=== PATIENT | male | born 1965 | race Caucasian/White ===

== ENCOUNTER 2025-11-06 13:26 | Outpatient (AMB) | payer OTHER, SELFPAY ==
[2025-11-06 13:48] VITALS: BMI 30.7
--- NOTE | 2025-11-06 13:48 | A.PHYSOV ---
Vital Signs 11/06/25 13:48 Height 5 ft 11 in Weight 220 lb BMI 30.7 Intake Visit Reasons: NPV VMA Ref- chronic b/l knee pain Intake Note: Patient is a 60 year old male here for new patient office visit. Patient is being referred for chronic bilateral knee pain. Air Conditioning Supervisor Required: No Allergies morphine Allergy (Unknown, Verified 11/06/25 13:49) Unknown HPI Comments Details: History of Present Illness The patient is a 60 year old male presenting with painful, aching bilateral knee pain. He reports the pain is worse when lying down, particularly on his left side, and it interferes with his ability to stay asleep. He states the pain is located in the middle of his knees and that it also hurts to walk, though not as severely as when he is lying down. He describes the pain as a 2/10 at present, but it does get worse. The patient believes the knee pain feels like arthritis and is distinct from his chronic back pain and sciatica. He has a history of being told he had bone on bone knees in 2002 after training for a marathon and subsequently stopped that activity. He reports that recent x-rays showed no findings. For treatment, the patient uses a prescribed diclofenac gel and takes gabapentin for his neck and back pain, though he is unsure if it helps his knees. He has not tried physical therapy for his knees. He is averse to needles due to a prior negative experience with an injection in his elbow. I reviewed the referring provider's no prior to consultation. Pain Description - Location: Bilateral knees, located right in the middle. - Quality: Described as painful and aching. - Severity: Currently rated at 2/10, but fluctuates and gets worse. - Exacerbating Factors: Pain is worse when lying down, especially on the left side, and with walking. - Interference with Function: The pain makes it difficult for him to stay asleep. Results - Imaging: The patient reports that recent x-rays of his knees showed no significant findings. PFSH Surgical History H/O shoulder surgery History of neck surgery History of back surgery Social History Alcohol intake: current Alcohol intake frequency: does not drink Patient Tobacco Use Status: Former Tobacco user Use of substances other than those prescribed or required for medical reasons: No Current occupational status: retired Review of Systems Narrative Review of Systems - Musculoskeletal: Reports bilateral knee pain that is aching in character and worse when lying down; reports a history of back, neck, and sciatic pain. - Neurological: Reports the knee pain does not feel like it radiates from his back. - Psychiatric: Reports difficulty staying asleep due to pain. Physical Exam Exam Exam: Physical Exam - Musculoskeletal: Inspection of bilateral knees reveals no effusion. - Left Knee: Tenderness to palpation around the patella; pain elicited with passive movement. No effusion. Ligaments are intact. Negative Damaso test. - Right Knee: No tenderness to palpation of the medial or lateral aspects. Ligaments are intact. Negative Damaso test. No effusion - Range of Motion: Full active extension and flexion performed bilaterally. - neurovascularly intact distally. Vital Signs: BMI result Body Mass Index 30.7 Assessment & Plan Assessment & Plan (1) Osteoarthritis of knees, bilateral: Code(s): M17.0 - Bilateral primary osteoarthritis of knee Category: Medical Qualifiers: Osteoarthritis type: primary Qualified Code(s): M17.0 - Bilateral primary osteoarthritis of knee Plan Pain Management - Affect: The patient reports his knee pain interferes with his sleep. - Analgesia: The patient uses a prescribed arthritic pain cream (diclofenac gel) and takes gabapentin for separate neck and back issues. - Current Pain level: The patient rates his current pain as 2/10. - Activities of Daily Living: Sleep is impaired due to pain; walking is also painful. - Aberrant Drug Related Behaviors: None discussed. Plan Patient was informed and verbally consented to the use of an ambient scribe for clinic note documentation during this visit. 1. Bilateral Knee Pain The patient's bilateral knee pain is likely due to arthritis, given his history and symptoms. Treatment options were discussed, including cortisone injections, which the patient declined due to a fear of needles. The patient agreed to try physical therapy to strengthen his knees. An order for physical therapy for both knees will be provided, and the patient was given information for both [facility] and his preferred facility, [facility]. An MRI of the more symptomatic knee remains an option if physical therapy is not effective. The patient was also advised to consider trying turmeric, a natural anti-inflammatory supplement. Discussion Notes I discussed the management options for the patient's bilateral knee pain. We reviewed options including physical therapy to strengthen the knees, cortisone injections for temporary relief, and a potential future MRI of the more symptomatic knee if needed. The patient expressed a fear of needles and declined a cortisone injection, but was amenable to trying physical therapy. I will provide him with an order for physical therapy for both knees, which he can take to his preferred physical therapy location. I also suggested he could try turmeric as a natural anti-inflammatory. We briefly discussed the logistics of his care, noting that he could receive all his pain management care at one facility, such as [facility] rather than being sent to multiple offices. Patient Instructions - I have ordered physical therapy for both of your knees. - You can schedule an appointment at your preferred location, [facility] in [place], or at [facility] in [place]. - You may consider trying an [id number] supplement called turmeric, which is a natural anti-inflammatory. - Continue using your prescribed diclofenac gel for pain as needed. - If your pain does not improve with physical therapy, please follow up to discuss other options, which may include an MRI scan. Orders: Orders PT Evaluation and Treatment Today M17.0 - Bilateral primary osteoarthritis of knee Coding Level of Care Code Tele New Pt Level 4 (82109) Diagnoses Primary osteoarthritis of both knees M17.0 Osteoarthritis type: primary
--- OUTSIDE RECORDS SUMMARY | 2025-11-06 17:33 | XMS_ITS | Patient Health Record ---
Author Organization [facility] Address [address] [place] [address] Care Team Providers Care Academic Coach Name Role Phone Amanuel Kinsey MD Primary Care Provider Unavailab Scott Arceo Unavailable [phone] Allergies Allergen (clinical drug ingredient) Drug/Non Drug Allergy documented on EMR Reaction Allergy Type Onset Date Status morphine Morphine red & itchy Drug Allergy Activ e Reason For Referral No Information Medications Medication SIG (Take, Route, Frequency, Duration) Notes Start Date End Date Status Montelukast Sodium 10 MG Oral; Duration: 90 Active Quinapril HCl 20 MG Oral; Duration: 90 Active Aspirin Active Fluticasone Propionate 50 MCG/ACT Nasal; Duration: 30 Active Simvastatin 40 MG Oral; Duration: 90 Active Advair Diskus 250-50 MCG/DOSE Inhalation; Duration: 90 Act christina Sertraline HCl 100 MG Oral; Duration: 90 Active Social History Tobacco use other than smoking: Question Answer Notes Are you an other tobacco user? No Plan Of Treatment No Information Insurance Providers Payer Name Payer Address Payer Phone Subscriber Number Group Number Insured Name Patient Relationship to Insured Coverage Start Date Coverage End Date [facility] ([facility] [address] [place] [address] [phone] [id number] Brian Barajas Self - patient is the insured Medical (General) History Medical History History ICD Code Anxiety disorder asthma Back,Hip,and Knee pain Cholesterol Hypertension Joint implants/screws Heart valve conditions/replacement Hyperlipidemia Obesity, morbid Insomnia Neck pain Headaches Chronic Asthmatic Bronchitis Peroneal Tendinitis Cervical Disc Disorder Acute upper respiratory infection Dizziness Pain in thumb Surgical History Surgery Date(Month/Year) sinus surgery 1987 back surgery 1990, 1991 neck surgery 2002
--- OUTSIDE RECORDS SUMMARY | 2025-11-06 17:33 | XMS_ITS | Clinical Summary ---
Author Organization [facility] Prior to 04/19/25 Address [address] [place] [address] Care Team Providers Care Juice Weigher Name Role Phone Amanuel Kinsey MD Primary Care Provider [phone] Allergies Active Allergy Reactions Criticality Noted Date Comments Morphine And Codeine Rash Low 09/22/2017 Medications Medication Sig Dispensed Refills Start Date End Date Status DYMISTA 137-50 MCG/ACT SUSP SPRAY ONCE INTO EACH NOSTRIL 2 TIMES DAILY 11 08/04/2017 Active SYMBICORT 160-4.5 MCG/ACT inhaler 2 (two) times a day. Rinse mouth after use as directed 5 06/24/2017 Active diazepam (VALIUM) tablet 5 mg TAKE 1 TO 2 TABLETS BY MOUTH AT BEDTIME NEEDED *DO NOT DRIVE WHILE TAKING* 0 09/15/2017 Active fluticasone (FLONASE) 50 MCG/ACT nasal spray spray/apply 2 sprays in each nostril daily. 4 07/10/2017 Active FLUVIRIN 0.5 ML injection ADM 0.5ML IM UTD 0 09/10/2017 Active montelukast (SINGULAIR) 10 MG tablet TAKE 1 TABLET BY MOUTH AT BEDTIME 5 09/12/2017 Active quinapril (ACCUPRIL) 20 MG tablet TAKE 1 TABLET BY MOUTH DAILY 3 09/16/2017 Active sertraline (ZOLOFT) 100 MG tablet TAKE 2 TABLETS BY MOUTH EVERY DAY 3 09/15/2017 Active simvastatin (ZOCOR) tablet 40 mg 0 09/19/2017 Active gabapentin (NEURONTIN) 300 MG capsule TAKE ONE CAPSULE BY MOUTH TWICE A DAY AND TAKE 2 CAPSULES AT BEDTIME 0 10/17/2017 Active Social History Tobacco Use Types Packs/Day Years Used Date Smoking Tobacco: Never Alcohol Use Standard Drinks/Week Comments Yes 4 (1 standard drink = 0.6 oz pur e alcohol) Sex and Gender Information Value Date Recorded Sex Assigned at Not on file Gender Identity Not on file Sexual Orientation Not on file Job Start Date Occupation Industry Not on file Not on file Not on file Last Filed Vital Signs Vital Sign Reading Time Taken Comments Blood Pressure 120/78 10/27/2017 1:30 PM EST Pulse - - Temperature - - Respiratory Rate - - Oxygen Saturation - - Inhaled Oxygen Concentration - - Weight 107 kg (236 lb) 10/27/2017 1:30 PM EST Height 180.3 cm (5' 11 ) 10/27/2017 1:30 PM EST Body Mass Index 32.92 10/27/2017 1:30 PM EST Plan of Treatment Health Maintenance Due Date Last Done Comments Hepatitis C Screening 1965 COVID-19 Vaccine (#1) 1964 Depression Screening 1976 Preventative Health Evaluation 1982 DTap / Tdap / Td (1 - Tdap) 1983 Colon Cancer Screening (Colonoscopy) 2009 Shingrix-Zoster Vaccine (1 of 2) 2014 Influenza Vaccine (#1) 2025 RSV Adult > 60+ Yrs or Pregn ant (1 - 1-dose 75+ series) 2039 Hepatitis B Vaccines Aged Out No long er eligible based on patient's age to complete this topic Pneumococcal Vaccine Aged Out No long er eligible based on patient's age to complete this topic RSV Ped < 20 months Aged Out No longe r eligible based on patient's age to complete this topic Care Teams Juice Weigher Relationship Specialty Start Date End Date Amanuel Kinsey MD [address] [place] [phone] PCP - General Internal Medicine 09/22/17
--- OUTSIDE RECORDS SUMMARY | 2025-11-06 17:33 | XMS_ITS | Clinical Summary ---
Author Organization [facility] Address [address] [facility] [facility] [address] [place] [id number] Phone Care Team Providers Care Diamond Sorter Name Role Phone Amanuel Kinsey MD Primary Care Provider [phone] Allergies Active Allergy Reactions Criticality Noted Date Comments Morphine 11/01/2018 Medications aspirin 81 mg chewable tablet Take 81 mg by mouth daily. Active albuterol 90 mcg/actuation inhaler Inhale 2 puffs into the lungs every 6 (six) hours as needed for wheezing. Active montelukast (SINGULAIR) 10 mg tablet Take 10 mg by mouth nightly. Active predniSONE (DELTASONE) 50 MG tablet Take 1 tablet (50 mg total) by mouth daily with breakfast. 5 tablet 11/01/2018 Active azithromycin (ZITHROMAX) 250 MG tablet Take 1 tab daily times 4 days 4 tablet 11/01/2018 Active Social History Tobacco Use Types Packs/Day Years Used Date Smoking Tobacco: Never Smokeless Tobacco: Never Alcohol Use Standard Drinks/Week Comments Yes 0 (1 standard drink = 0.6 oz pur e alcohol) 2-3 times weekly Education Answer Date Recorded Are you interested in more education? Not on chase e 03/17/2023 Are you concerned about learning? Not on file 03/17/2023 No 03/17/2023 No 03/17/2023 Digital Access Answer Date Recorded No 04/15/2023 No 04/15/2023 No 04/15/2023 Reliable internet access at home? Not on file 04/15/2023 Device with a working camera? Not on file Sex and Gender Information Value Date Recorded Sex Assigned at Not on file Legal Sex Male 2:26 PM EST Gender Identity Not on file Sexual Orientation Not on file Last Filed Vital Signs Vital Sign Reading Time Taken Comments Blood Pressure 167/116 11/01/2018 5:47 PM EST Pulse 97 11/01/2018 5:47 PM EST Temperature 37.5 C (99.5 F) 11/01/2018 5:47 PM EST Respiratory Rate 18 11/01/2018 5:47 PM EST Oxygen Saturation 96% 11/01/2018 5:47 PM EST Inhaled Oxygen Concentration - - Weight 111.1 kg (245 lb) 11/01/2018 2:40 PM EST Height 180.3 cm (5' 11 ) 11/01/2018 2:40 PM EST Body Mass Index 34.17 11/01/2018 2:40 PM EST Plan of Treatment Health Maintenance Due Date Last Done Comments LIPID PANEL 1964 DEPRESSION SCREENING 1976 HEPATITIS C SCREENING 1982 HIV ONE-TIME SCREENING (18-65 YEARS) 1982 COLOGUARD 2009 COLONOSCOPY 2009 COLORECTAL CANCER SCREENING 2009 FIT TEST 2009 FOBT 2009 SIGMOIDOSCOPY 2009 VIRTUAL COLONOSCOPY 2009 PNEUMOCOCCAL VACCINES (50+ years) (1 of 1 - PCV) 2014 ZOSTER VACCINES (1 of 2) 2014 Adult Td,Tdap Booster 02/12/2023 02/12/2013 INFLUENZA VACCINE (#1) 2025 , 09/10/2017, 08/25/2016, Additional history exists COVID-19 VACCINE (2024- season) 2025 03/25/2021, 03/11/2021, 02/27/2021, Additional history exists RSV VACCINE (1 - 1-dose 75+ series) 2039 SMOKING STATUS SCREENING (Once After 26 Yrs) Completed 11/01/2018 HEPATITIS A VACCINES Aged Out No long er eligible based on patient's age to complete this topic HIB VACCINES Aged Out No longer eligi ble based on patient's age to complete this topic MENINGOCOCCAL VACCINES (ACWY) Aged Out No longer eligible based on patient's age to complete this topic MENINGOCOCCAL VACCINES (B) Aged Out N o longer eligible based on patient's age to complete this topic Medical Devices Not on file [place] [facility] Care Teams Diamond Sorter Relationship Specialty Start Date End Date Amanuel Kinsey MD [address] [place] [phone] PCP - General Internal Medicine 11/01/18 Additional Source Comments The information contained in this document represents components of the legal health record. It is not the complete legal health record.[facility]
--- OUTSIDE RECORDS SUMMARY | 2025-11-06 17:33 | XMS_ITS | Continuity of Care Document ---
Author Organization [facility], Main Office Address [address] [facility] [address] [place] [address] Care Team Providers Care Filling Winder Name Role Phone WESLY BUTLER Orthopedic Surgeon JACKY KNIGHT Acid Correction Hand [phone] SUJIT RICH Neurosurgeon POLLY RAZO Flexographic Press Helper [employer] (P[employer]ER TWISTER) SERVICES Psy chiatrist WADE OLEMDO Primary Care Provider JUAN FERNANDEZ Acid Correction Hand [phone] Assessment No assessment recorded. Plan of Treatment Reminders Order Date Submit Date Provider Last Modified By Organization Details Last Modified Time Details Appointments None recorded. Lab cobalamin and folate panel, serum 2024 025 ANTOLIN [facility] (Centralized Electronic Ordering - All Locations), Patient Can Go To The Location Of Their Choice, [address] 16:07:20 lipid panel, serum 2024 025 ANTOLIN [facility], [address], [address], [place], [address], 06:09:29 CBC w/ auto diff 2024 025 ANTOLIN [facility], [address], [address], [place], [address], 06:09:28 TSH, ultra-sensi tive, serum 2024 ANTOLIN [facility] (Centralized Electronic Ordering - All Locations), Patient Can Go To The Location Of Their Choice, [address] 16:07:21 CMP, serum or plasma 2024 025 ANTOLIN [facility] (Centralized Electronic Ordering - All Locations), Patient Can Go To The Location Of Their Choice, [address] 16:07:20 PSA, serum or plasma - Screening 2024 ANTOLIN [facility], [address], [address], [place], [address], 06:09:29 magnesium, serum or plasma 2024 ANTOLIN [facility], [address], [place], [address], 06:09:30 Referral orthopedic surgeon referral 2024 ANTOLIN Chi MD, [address], [address], [place], [address], 17:19:37 Procedures None recorded. Surgeries None recorded. Imaging XR, knee, weightbeari ng 2024 ANTOLIN Not available 08:40:43 XR, knee, 3 view 2024 ANTOLIN Not available 08:31:02 Medication Orders diclofenac 1 % topical gel 2024 [id number], [address] [facility], [place], [address], 09:55:54 Patient TargetsNo targets recorded. Patient Instructions Encounter Date Encounter Id Patient Instructions Last Modified By Organization Details Last Modified Time 10/20/2025 [id number] Well Visit 50 to 65: Care Instructions ckokar Not available 10/20/2025 09:30:27 Prostate Cancer Screening ckokar Not available 10/20/2025 09:30:26 Starting a Weight-Loss Plan: Care Instructions ckokar Not available 10/20/2025 09:30:27 Reason for Referral Orthopedic Surgeon Referral for Pain of knee region Referring Physician: Wade Olmedo, Family Medicine, Encounter Date: 10/20/2025 Results Created Date Observation Date Name Description Value Unit Range Abnormal Flag Note LastModifiedBy Organization Detail LastModifiedTime 10/20/2010/20/2025 CBC WITH DIFFE RENTI AL/PL ATELE T WBC 6.6 x10e3 /uL 3.4-10 .8 normal Not Available [facility] ([facility]) [address] [place], [address], 10/21/2025 06:09:28 10/20/20 25 10/20/2025 CBC WITH DIFFE RENTI AL/PL ATELE T RBC 4.85 x10e6 /uL 4.14-5 .80 normal Not Available [facility] ([facility]) [address] [place], [address], 10/21/2025 06:09:28 10/20/20 25 10/20/2025 CBC WITH DIFFE RENTI AL/PL ATELE T hemoglobin 15.2 g/dL 13.0-1 7.7 normal Not Available [facility] ([facility]) [address] [place], [address], 10/21/2025 06:09:28 10/20/20 25 10/20/2025 CBC WITH DIFFE RENTI AL/PL ATELE T hematocrit 45.2 % 37.5-5 1.0 normal Not Available [facility] ([facility]) [address] [place], [address], 10/21/2025 06:09:28 10/20/20 25 10/20/2025 CBC WITH DIFFE RENTI AL/PL ATELE T MCV 93 fL 79-97 normal Not Available [facility] ([facility]) [address] [place], [address], 10/21/2025 06:09:28 12/01/20 25 10/20/2025 CBC WITH DIFFE RENTI AL/PL ATELE T MCH 31.3 pg 26.6-3 3.0 normal Not Available [facility] ([facility]) [address] [facility], [place], [address], 10/21/2025 06:09:28 10/20/20 25 10/20/2025 CBC WITH DIFFE RENTI AL/PL ATELE T MCHC 33.6 g/dL 31.5-3 5.7 normal Not Available [facility] ([facility]) [address] [facility], [place], [address], 10/21/2025 06:09:28 10/20/20 25 10/20/2025 CBC WITH DIFFE RENTI AL/PL ATELE T RDW 13.2 % 11.6-1 5.4 Not Available [facility] ([facility]) [address] [facility], [place], [address], 10/21/2025 06:09:28 10/20/20 25 10/20/2025 CBC WITH DIFFE RENTI AL/PL ATELE T platelets 111 x10e3 /uL 150-45 0 below low normal Not Available [facility] ([facility]) [address] [facility], [place], [address], 10/21/2025 06:09:28 10/20/20 25 10/20/2025 CBC WITH DIFFE RENTI AL/PL ATELE T neutrophils 68 % not estab. normal Not Available [facility] ([facility]) [address] [facility], [place], [address], 10/21/2025 06:09:28 10/20/20 25 10/20/2025 CBC WITH DIFFE RENTI AL/PL ATELE T lymphs 18 % not estab. normal Not Available [facility] ([facility]) [address] [place], [address], 10/21/2025 06:09:28 10/20/20 25 10/20/2025 CBC WITH DIFFE RENTI AL/PL ATELE T monocytes 11 % not estab. normal Not Available [facility] ([facility]) [address] [facility], [place], [address], 10/21/2025 06:09:28 10/20/20 25 10/20/2025 CBC WITH DIFFE RENTI AL/PL ATELE T eos 2 % not estab. normal Not Available [facility] ([facility]) [address] [facility], [place], [address], 10/21/2025 06:09:28 10/20/2010/20/2025 CBC WITH DIFFE RENTI AL/PL ATELE T basos 1 % not estab. normal Not Available [facility] ([facility]) [address] [facility], [place], [address], 10/21/2025 06:09:28 10/20/20 25 10/20/2025 CBC WITH DIFFE RENTI AL/PL ATELE T immature cells PSYCHOLOGICAL OPERATIONS Not Available [facility] ([facility]) [address] [place], [address], 10/21/2025 06:09:28 10/20/20 25 10/20/2025 CBC WITH DIFFE RENTI AL/PL ATELE T neutrophils (absolute) 4.5 x10e3 /uL 1.4-7. 0 normal Not Available [facility] ([facility]) [address] [place], [address], 10/21/2025 06:09:28 10/20/2010/20/2025 CBC WITH DIFFE RENTI AL/PL ATELE T lymphs (absolute) 1.2 x10e3 /uL 0.7-3. 1 normal Not Available [facility] ([facility]) [address] [place], [address], 10/21/2025 06:09:28 10/20/20 25 10/20/2025 CBC WITH DIFFE RENTI AL/PL ATELE T monocytes(ab solute) 0.7 x10e3 /uL 0.1-0. 9 normal Not Available [facility] ([facility]) [address] [place], [address], 10/21/2025 06:09:28 10/20/20 25 10/20/2025 CBC WITH DIFFE RENTI AL/PL ATELE T eos (absolute) 0.1 x10e3 /uL 0.0-0. 4 normal Not Available [facility] ([facility]) [address] [facility], [place], [address], 10/21/2025 06:09:28 10/20/20 25 10/20/2025 CBC WITH DIFFE RENTI AL/PL ATELE T baso (absolute) 0.1 x10e3 /uL 0.0-0. 2 normal Not Available [facility] ([facility]) [address] [place], [address], 10/21/2025 06:09:28 10/20/20 25 10/20/2025 CBC WITH DIFFE RENTI AL/PL ATELE T immature granulocytes 0 % not estab. Not Available [facility] ([facility]) [address] [place], [address], 10/21/2025 06:09:28 10/20/20 25 10/20/2025 CBC WITH DIFFE RENTI AL/PL ATELE T immature grans (abs) 0.0 x10e3 /uL 0.0-0. 1 Not Available [facility] ([facility]) [address] [place], [address], 10/21/2025 06:09:28 10/20/20 25 10/20/2025 CBC WITH DIFFE RENTI AL/PL ATELE T NRBC PSYCHOLOGICAL OPERATIONS Not Available [facility] ([facility]) [address] [place], [address], 10/21/2025 06:09:28 10/20/20 25 10/20/2025 CBC WITH DIFFE RENIRVING AL/PL ATELE T hematology comments: PSYCHOLOGICAL OPERATIONS Not Available [facility] ([facility]) [address] [facility], [place], [address], 10/21/2025 06:09:28 10/20/20 25 10/21/2025 LIPID PANEL cholesterol, total 163 mg/dL 100-19 9 normal Not Available [facility] ([facility]) [address] [facility], [place], [address], 10/21/2025 06:09:29 10/20/20 25 10/21/2025 LIPID PANEL triglyceride s 108 mg/dL 0-149 normal Not Available [facility] ([facility]) [address] [facility], [place], [address], 10/21/2025 06:09:29 10/20/20 25 10/21/2025 LIPID PANEL HDL cholesterol 42 mg/dL >39 normal Not Available [facility] ([facility]) [address] [facility], [place], [address], 10/21/2025 06:09:29 10/20/20 25 10/21/2025 LIPID PANEL VLDL cholesterol maddy 20 mg/dL 5-40 Not Available [facility] ([facility]) [address] [facility], [place], [address], 10/21/2025 06:09:29 10/20/20 25 10/21/2025 LIPID PANEL LDL chol calc ([facility]) 101 mg/dL 0-99 above high normal Not Available [facility] ([facility]) [address] [facility] [place], [address], 10/21/2025 06:09:29 10/20/20 25 10/21/2025 LIPID PANEL LDL calc comment: PSYCHOLOGICAL OPERATIONS Not Available [facility] ([facility]) [address] [facility], [place], [address], 10/21/2025 06:09:29 10/20/2010/20/2025 PSA TOTAL (REFL EX TO FREE) reflex criteria Commen t The perce nt free PSA is perfo rmed on a refle x basis only when the total PSA is betwe en 4.0 and 10.0 ng/mL . Not Available [facility] ([facility]) [address] [facility], [place], [address], 10/21/2025 06:09:29 10/20/2010/21/2025 PSA TOTAL (REFL EX TO FREE) prostate specific Ag 0.6 NG/mL 0.0-4. 0 normal Andrea ECLIA metho dolog y. Accor ding to the Ameri can Urolo gical Assoc iatio n, Serum PSA shoul d decre ase and remai n at undet ectab le level s after radic al prost atect jamarcus. The AUA defin es bioch emica l recur rence as an initi al PSA value 0.2 ng/mL or great er follo wed by a subse quent confi rmato ry PSA value 0.2 ng/mL or great er. Value s obtai daly with diffe rent assay metho ds or kits canno t be used inter veliz valeriy . Resul ts canno t be inter prete d as absol toney evide nce of the prese nce or absen ce of leslee calero se. Not Available [facility] ([facility]) [address] [facility], [place], [address], 10/21/2025 06:09:29 10/20/2010/21/2025 MAGNE SIUM magnesium 2.1 mg/dL 1.6-2. 3 normal Not Available [facility] ([facility]) [address] [place], [address], 10/21/2025 06:09:30 10/20/2010/20/2025 CMP14 (REFL EX HGB A1C) sodium 140 mmol/ L 134-14 4 normal Not Available [facility] ([facility]) [address] [place], [address], 10/23/2025 16:07:19 10/20/20 25 10/20/2025 CMP14 (REFL EX HGB A1C) potassium 4.9 mmol/ L 3.5-5. 2 normal Not Available [facility] ([facility]) [address] [place], [address], 10/23/2025 16:07:19 10/20/20 25 10/20/2025 CMP14 (REFL EX HGB A1C) chloride 102 mmol/ L 96-106 normal Not Available [facility] ([facility]) [address] [place], [address], 10/23/2025 16:07:19 10/20/20 25 10/21/2025 CMP14 (REFL EX HGB A1C) glucose 102 mg/dL 70-99 above high normal Not Available [facility] ([facility]) [address] [place], [address], 10/23/2025 16:07:19 10/20/20 25 10/21/2025 CMP14 (REFL EX HGB A1C) BUN 12 mg/dL 8-27 normal Not Available [facility] ([facility]) [address] [place], [address], 10/23/2025 16:07:19 10/20/20 25 10/21/2025 CMP14 (REFL EX HGB A1C) creatinine 0.78 mg/dL 0.76-1 .27 normal Not Available [facility] ([facility]) [address] [place], [address], 10/23/2025 16:07:19 10/20/20 25 10/21/2025 CMP14 (REFL EX HGB A1C) eGFR 101 mL/mi n/1.7 3 >59 normal Not Available [facility] ([facility]) [address] [place], [address], 10/23/2025 16:07:19 10/20/20 25 10/21/2025 CMP14 (REFL EX HGB A1C) BUN/creatini ne ratio 15 10-24 normal Not Available [facility] ([facility]) [address] [place], [address], 10/23/2025 16:07:19 10/20/20 25 10/21/2025 CMP14 (REFL EX HGB A1C) carbon dioxide, total 27 mmol/ L 20-29 normal Not Available [facility] ([facility]) [address] [place], [address], 10/23/2025 16:07:19 10/20/20 25 10/21/2025 CMP14 (REFL EX HGB A1C) calcium 9.5 mg/dL 8.6-10 .2 normal Not Available [facility] ([facility]) [address] [place], [address], 10/23/2025 16:07:19 10/20/20 25 10/21/2025 CMP14 (REFL EX HGB A1C) protein, total 6.9 g/dL 6.0-8. 5 normal Not Available [facility] ([facility]) [address] [place], [address], 10/23/2025 16:07:19 10/20/20 25 10/21/2025 CMP14 (REFL EX HGB A1C) albumin 4.7 g/dL 3.9-4. 9 normal Not Available [facility] ([facility]) [address] [place], [address], 10/23/2025 16:07:19 10/20/20 25 10/21/2025 CMP14 (REFL EX HGB A1C) globulin, total 2.2 g/dL 1.5-4. 5 Not Available [facility] ([facility]) [address] [place], [address], 10/23/2025 16:07:19 10/20/20 25 10/21/2025 CMP14 (REFL EX HGB A1C) bilirubin, total 0.5 mg/dL 0.0-1. 2 normal Not Available [facility] ([facility]) [address] [place], [address], 10/23/2025 16:07:19 10/20/20 25 10/21/2025 CMP14 (REFL EX HGB A1C) alkaline phosphatase 44 IU/L 47-123 below low normal Not Available [facility] ([facility]) [address] [place], [address], 10/23/2025 16:07:19 10/20/20 25 10/21/2025 CMP14 (REFL EX HGB A1C) AST (SGOT) 22 IU/L 0-40 normal Not Available [facility] ([facility]) [address] [place], [address], 10/23/2025 16:07:19 10/20/20 25 10/21/2025 CMP14 (REFL EX HGB A1C) ALT (SGPT) 18 IU/L 0-44 normal Not Available [facility] ([facility]) [address] [place], [address], 10/23/2025 16:07:19 10/20/20 25 10/23/2025 CMP14 (REFL EX HGB A1C) hemoglobin A1C 5.0 % 4.8-5. 6 normal Predi abete s: 5.7 - 6.4 Diabe giovanna: >6.4 Glyce letty contr ol for adult s with diabe giovanna: <7.0 Not Available [facility] ([facility]) [address] [place], [address], 10/23/2025 16:07:19 10/20/20 25 10/21/2025 VITAM IN B12 AND FOLAT E vitamin B12 435 pg/mL 232-12 45 normal Not Available [facility] ([facility]) [address] [place], [address], 10/23/2025 16:07:20 10/20/20 25 10/21/2025 VITAM IN B12 AND FOLAT E folate (folic acid), serum 6.5 NG/mL >3.0 normal A serum folat e radha ntrat ion of less than 3.1 ng/mL is consi dered to repre sent clini maddy defic iency . Not Available [facility] ([facility]) [address] [facility], [place], [address], 10/23/2025 16:07:20 10/20/20 25 10/21/2025 TSH RFX ON ABNOR MAL TO FREE T4 TSH 1.540 uIU/m L 0.450- 4.500 normal Not Available [facility] ([facility]) [address] [facility], [place], [address], 10/23/2025 16:07:20 10/20/20 25 10/22/2025 ALK PHOS ISOEN ZYMES alkaline phosphatase 45 IU/L 47-123 below low normal Not Available [facility] ([facility]) [address] [facility], [place], [address], 10/27/2025 22:06:00 10/20/20 25 10/27/2025 ALK PHOS ISOEN ZYMES liver fraction %: 61 % not estab. Not Available [facility] ([facility]) [address] [facility], [place], [address], 10/27/2025 22:06:00 10/20/20 25 10/27/2025 ALK PHOS ISOEN ZYMES liver fraction IU/L: 27 IU/L 21-86 Not Available [facility] ([facility]) [address] [facility], [place], [address], 10/27/2025 22:06:00 10/20/20 25 10/27/2025 ALK PHOS ISOEN ZYMES bone fraction %: 38 % not estab. Not Available [facility] ([facility]) [address] [facility], [place], [address], 10/27/2025 22:06:00 10/20/20 25 10/27/2025 ALK PHOS ISOEN ZYMES bone fraction IU/L: 17 IU/L 16-52 Not Available [facility] ([facility]) [address] [facility], [place], [address], 10/27/2025 22:06:00 10/20/20 25 10/27/2025 ALK PHOS ISOEN ZYMES intestinal frac.%: 1 % not estab. Not Available [facility] ([facility]) [address] [facility], [place], [address], 10/27/2025 22:06:00 10/20/2010/27/2025 ALK PHOS ISOEN ZYMES intestinalfr ac.IU/L: 0 IU/L 0-14 Not Available [facility] ([facility]) [address] [facility], [place], [address], 10/27/2025 22:06:00 10/20/20 25 10/24/2025 VITAM IN D, 25-HY DROXY vitamin D, 25-hydroxy 33.4 NG/mL 30.0-1 00.0 Vitam in D defic iency has been defin ed by the Insti tute of Medic ine and an Endoc [facility] Socie ty pract ice guide line as a level of serum 25-OH vitam in D less than 20 ng/mL (1,2) . The Endoc rine Socie ty went on to furth er defin e vitam in D insuf ficie ncy as a level betwe en 21 and 29 ng/mL (2). 1. IOM (Inst itute of Medic ine). 2010. Dieta ry refer ence romie es for calci um and D. Khai carpenter [place]: The Natio nal [facility] Press . 2. Julio raphael [place], Camila alves [place], Pilar off-F errar i [place], et al. Evalu ation , treat ment, and preve ntion of vitam in D defic iency : an Endoc rine Socie ty clini maddy pract ice guide line. JCEM. 2010; 96(7) :1911 -30. Not Available [facility] ([facility]) [address] [facility], [place], [address], 10/27/2025 22:06:01 10/20/20 25 10/21/2025 WRITT EN AUTHO RICORINNET DONG written authorizatio n Commen t Writt en Autho rizat ion Recei pantera. Autho rizat ion recei pantera from [facility] JULI OLMEDO for Link Reque st on 10-21 Logge d by Arielle Chester Not Available [facility] ([facility]) [address] [facility], [place], [address], 10/27/2025 22:06:02 10/20/20 25 10/21/2025 TICK- BORNE DISEA SE AB PROFI LE result comments: Commen t Antib aneta titer s may be negat christina in the first 7-10 days of illne ss. A four- fold rise in IgG antib aneta titer s for Babes ia micro ti, Anapl asma phago cytop hilum , and/o r Ehrli farnaz chaff eensi s in paire d sampl es (acut e and conva lesce nt) suppo rts the diagn osis of babes iosis , anapl asmos is, and/o r ehrli chios is, respe ctive ly. Not Available [facility] ([facility]) [address] [facility], [place], [address], 10/30/2025 14:06:46 10/20/2010/24/2025 TICK- BORNE DISEA SE AB PROFI LE lyme total antibody susie Negati ve negati ve Lyme antib odies not detec jayson. Refle x testi ng is not indic ated. No labor atory evide nce of infec tion with B. burgd orfer i (Lyme disea se). Negat christina resul ts may occur in patie nts recen tly infec jayson (less than or equal to 14 days) with B. burgd orfer i. If recen t infec tion is suspe cted, repea t testi ng on a new sampl e colle cted in 7 to 14 days is recom ana lilia d. Not Available [facility] ([facility]) [address] [place], [address], 10/30/2025 14:06:46 10/20/20 25 10/29/2025 TICK- BORNE DISEA SE AB PROFI LE E. chaffeensis IgG Negati ve neg:<1 :64 Not Available [facility] ([facility]) [address] [facility], [place], [address], 10/30/2025 14:06:46 10/20/20 25 10/29/2025 TICK- BORNE DISEA SE AB PROFI LE A. phagocytophi lum IgG Negati ve neg:<1 :64 Not Available [facility] ([facility]) [address] [place], [address], 10/30/2025 14:06:46 10/20/20 25 10/30/2025 TICK- BORNE DISEA SE AB PROFI LE babesia microti IgG <1:10 neg:<1 :10 Not Available [facility] ([facility]) [address] [place] [address], [address], 10/30/2025 14:06:46 10/21/20 25 10/20/2025 XR, knee, 3 view No observ ation record ed. [facility] [address] [address], [place], [address], 10/21/2025 10:18:50 10/21/20 25 10/20/2025 XR, knee, weigh tbear ing Knees Bilat Standi ng, 2 views of each knee Reason : bilat knee pain Pain in both knees for 6 months with no relief COMPAR GLADIS: Left knee on 020 FINDIN GS: No bone lesion s or fractu res. No arthri tic change s. No osteoc hondra l defect s or intra- articu lar loose bodies . No eviden ce of joint effusi on. Mild athero sclero tic change s left poplit eal artery . IMPRES WILFREDO: Negati ve study of both knees. WSN: [id number] Orderi Physic yefri: Rinku Olmedo Dictat ed By: Isabelle Multani MD Dictat ed Date/T erum: 8:26 am Review ed By: Lyn chung MD, Isabelle Daley Signed By: Isabelle Multani MD Signed Date/T erum: 8:26 am Transc ribed By: ROJASB Transc ribed Date/T erum: 8:23 am Patiarabella t Class: Outpat constancent mook [facility] (Outpt Imaging) [address] [place] [address], [address], 10/21/2025 08:42:06 Result Notes None recorded. Problems Name Problem SNOMED Code Status Onset Date Resolution Date Notes Provider Name and Address Organization Details Recorded Time Body mass index 30+ - obesity 624895977 Active Not Available [facility] [place] 3 08:40:44 Moderate persiste nt asthma 436612469 Active Not Available [facility] [place] 3 08:40:44 Low back pain 973572878 Completed 10/04/2023 Wade Olmedo MD [address] [facility] [address], [place], [address] , [facility] 3 13:20:48 Pain in thumb 810938225 Completed 05/17/2017 SKYLER Espinoza, [facility] 7 13:49:25 Dizzines s 882528006 Completed 05/17/2017 SKYLER Espinoza, [facility] 7 13:49:27 Anxiety 49555368 Active Not Available [facility] [place] 3 08:40:45 Headache 57702257 Completed 10/04/2023 Wade Olmedo MD [address], [place], [address] , [facility] 3 13:20:37 Peroneal tendinit is 59932297 Completed 11/02/2017 Amanuel Kinsey MD [address] [facility] [address], [place], [address] , [facility] 7 09:54:26 Seasonal allergic rhinitis 012576772 Active SKYLER Espinoza, [facility] 5 12:48:27 Adult health examinat ion Completed 201206/30/2014 RECORDED 02/13/20 13 4:03PM BY ANN BROOKE MA, ANNOTATI ON/ADDEN DUM SKYLER Espinoza, [facility] 5 11:04:30 Malaise and fatigue 547333664 Completed 201206/30/2014 RECORDED 02/13/20 13 4:03PM BY ANN BROOKE MA, ANNOTATI ON/ADDEN DUM SKYLER Espinoza, [facility] 5 11:04:30 Adult health examinat ion Completed 201206/03/2014 RECORDED 02/13/20 13 4:03PM BY ANN BROOKE MA, ANNOTATI ON/ADDEN DUM SKYLER Espinoza, [facility] 5 11:04:30 Malaise and fatigue 849159342 Completed 201206/03/2014 RECORDED 02/13/20 13 4:03PM BY ANN BROOKE MA, ANNOTJESSICA ON/ADDEN DUM SKYLER Espinoza, [facility] 5 11:04:30 Administ ration of diphther ia and tetanus vaccine Completed 201206/30/2014 RECORDED 05/22/20 13 9:37AM BY ANN BROOKE MA, ANNOTATI ON/ADDEN DUM SKYLER Espinoza, [facility] 5 11:04:30 Administ ration of diphther ia and tetanus vaccine Completed 201206/03/2014 RECORDED 05/22/20 13 9:37AM BY ANN BROOKE MA, ANNOTATI ON/ADDEN DUM SKYLER Espinoza, [facility] 5 11:04:30 Closed fracture of distal phalanx of finger 79502483 Completed 201206/30/2014 STORY: RIGHT LONG FINGER; RECORDED 09/04/20 13 10:35AM BY YAKOV MILLARD MA, ANNOTJESSICA ON/ADDEN DUM SKYLER Espinoza, [facility] 5 11:04:30 Follow-u p encounte r Completed 201206/30/2014 RECORDED 09/04/20 13 10:35AM BY YAKOV MILLARD MA, ANNOTJESSICA ON/ADDEN DUM Ann bar MA null, [facility] 5 11:04:30 Knee pain Completed 201206/30/2014 RECORDED 09/04/20 13 10:35AM BY YAKOV MILLARD MA, ANNOTATI ON/ADDEN DUM Ann bar MA null, [facility] 5 11:04:30 Closed fracture of distal phalanx of finger 22809883 Completed 201206/03/2014 STORY: RIGHT LONG FINGER; RECORDED 09/04/20 13 10:35AM BY YAKOV MILLARD MA, ANNOTJESSICA ON/ADDEN DUM SKYLER Espinoza, [facility] 5 11:04:30 Follow-u p encounte r Completed 201206/03/2014 RECORDED 09/04/20 13 10:35AM BY YAKOV MILLARD MA, ANNOTJESSICA ON/ADDEN DUM SKYLER Espinoza, [facility] 5 11:04:30 Knee pain Completed 201206/03/2014 RECORDED 09/04/20 13 10:35AM BY YAKOV MILLARD MA, KLEVER ON/ADDEN DUM SKYLER Espinoza, [facility] 5 11:04:30 Acute sinusiti s [id number] Completed 201206/30/2014 IMPRESSI ON: STILL HAS 2 MORE DAYS Z-BHAVANI ACTIVE IN HIM. DO SINUS RINSE AND FLONASE. IF NO IMPROVEM ENT BY MONDAY CALL AND WE CAN PRESCRIB E NEW ABX; RECORDED 09/19/20 13 3:46PM BY ANN BROOKE MA, KLEVER ON/ADDEN DUM SKYLER Espinoza, [facility] 5 11:04:30 Acute sinusiti s [id number] Completed 201206/03/2014 IMPRESSI ON: STILL HAS 2 MORE DAYS Z-BHAVANI ACTIVE IN HIM. DO SINUS RINSE AND FLONASE. IF NO IMPROVEM ENT BY MONDAY CALL AND WE CAN PRESCRIB E NEW ABX; RECORDED 09/19/20 13 3:46PM BY ANN BROOKE MA, KLEVER ON/ADDEN DUM SKYLER Espinoza, [facility] 5 11:04:30 Influenz a vaccine needed [id number] 06 Completed 201206/30/2014 RECORDED 10/10/20 13 8:19AM BY KLEVER MAY ON/ADDEN DUM SKYLER Espinoza, [facility] 5 11:04:30 Influenz a vaccine needed [id number] 06 Completed 201206/03/2014 RECORDED 10/10/20 13 8:19AM BY KLEVER MAY ON/ADDEN DUM SKYLER Espinoza, [facility] 5 11:04:30 Essentia l hyperten wilfredo [id number] Completed 201206/03/2014 RECORDED 10/10/20 13 8:19AM BY MELINDA GOFF, ANNOTATI ON/ADDEN DUM SKYLER Espinoza, [facility] 7 13:49:49 Hypersom kimberley [id number] Completed 201206/30/2014 RECORDED 11/08/20 13 8:37AM BY ANN BROOKE MA, ANNOTATI ON/ADDEN DUM SKYLER Espinoza, [facility] 5 11:04:30 Wheezing [id number] Completed 201206/30/2014 RECORDED 11/08/20 13 8:37AM BY ANN BROOKE MA, ANNOTATI ON/ADDEN DUM SKYLER Espinoza, [facility] 5 11:04:30 Hypersom kimberley [id number] Completed 201206/03/2014 RECORDED 11/08/20 13 8:37AM BY ANN BROOKE MA, ANNOTATI ON/ADDEN DUM SKYLER Espinoza, [facility] 5 11:04:30 Wheezing [id number] Completed 201206/03/2014 RECORDED 11/08/20 13 8:37AM BY ANN BROOKE MA, ANNOTJESSICA ON/ADDEN DUM SKYLER Espinoza, [facility] 5 11:04:30 Acute asthma 889702470 Completed 201305/17/2017 SKYLER Espinoza, [facility] 7 13:49:22 Cervical disc disorder 003377515 Completed 201310/04/2023 Wade Olmedo MD [address] [address], [facility] [place], [address] , [facility] 3 13:20:07 Family history of malignan t neoplasm of gastroin testinal tract 803881234 Active 2013 colon cancer Not Available [facility] 3 08:40:45 Hyperlip idemia 53852371 Active 2013 Not Available [facility] 3 08:40:45 Essentia l hyperten wilfredo 86471216 Active 2013 Not Available [facility] 3 08:40:45 Insomnia 683042218 Completed 201310/04/2023 Wade Olmedo MD [address], [place], [address] , [facility] 3 13:20:43 Patient status finding [id number] Completed 201306/12/2014 RECORDED 12/06/19 14 10:08AM BY LYLE MAS I, OFFICE VISIT SKYLER Espinoza, [facility] 5 11:04:30 Obesity 913002037 Active 2013 Not Available [facility] 3 08:40:44 Acute upper respirat ory infectio n 51658842 Completed 201305/17/2017 SKYLER Espinoza, [facility] 7 13:49:39 Renewal of prescrip tion Completed 201305/17/2017 SKYLER Espinoza, [facility] 7 13:49:12 Chronic asthmati c bronchit is 916478681 Active 2013 Not Available [facility] 3 08:40:44 Neck pain 08599977 Completed 201310/18/2024 Wade Olmedo MD [address], [place], [address] , [facility] 4 13:04:59 Acquired thromboc ytopenia 68163841 Active 2019 Not Available [facility] 3 08:40:45 Hyponatr emia 25227421 Completed 201911/13/2022 Wade Olmedo MD [address] [facility] [address], [place], [address] , [facility] 2 13:39:36 Severe major depressi on, single episode, without psychoti c features 89593220 Completed 201910/04/2023 Wade Olmedo MD [address] [facility] [address], [place], [address] , [facility] 3 13:21:21 Alcohol dependen ce 79619947 Completed 201910/04/2023 Wade Olmedo MD [address] [facility] [address], [place], [address] , [facility] 3 13:22:09 Degenera tion of lumbar interver tebral disc 13851915 Active 2019 Not Available [facility] 3 08:40:44 Esophage al varices 01690732 Active 2020 Seen on EGD 06/2021. Weinstei n for GI Not Available [facility] 3 08:40:44 Heredita ry essentia l tremor 575703866 Active 2021 dx by neuro 01/12/22, lab imaging neg Not Available [facility] 3 08:40:45 Obstruct christina sleep apnea of adult 34561337106 03 Active 2021 Not Available [facility] 3 08:40:44 Impaired fasting glycemia 831358956 Completed 202110/16/2024 Wade Olmedo MD [address] [facility] [address], [place], [address] , [facility] 4 12:52:14 Obsessiv e-compul sive disorder 584732676 Active 2022 Not Available [facility] 3 08:40:44 Major depressi on in remissio n 39560768 Active 2022 Not Available [facility] 3 08:40:44 History of alcoholi sm 113571009 Active 2022 sober 2yrs, Not Available [facility] 3 08:40:44 Ex-smoke r 2214950 Active 2023 Wade Olmedo MD [address] [facility] [address], [place], [address] , [facility] 4 13:05:56 Cirrhosi s of liver 30638417 Active 2024 Wade Olmedo MD [address] [facility] [address], [place], [address] , [facility] 5 13:00:03 Problem Notes None recorded. Procedures Surgical History Date Name Laterality Status Provider Name and Address Organization Details Recorded Time 03/06 Colonoscopy completed Alida Hogan [facility] 5 15:52:55 03/06 esophagogastroduodenoscopy completed Simeon Villavicencio [facility] 5 10:42:36 10/03 Unlisted procedure spine completed Hedy Montejo [facility] 7 14:29:27 09/29 Neck spine disk surgery completed Ann giron MA [facility] 7 13:51:24 11/20 Repair rotator cuff acute completed Ann giron MA [facility] 4 09:57:21 11/20 excision of medial epicondyle of humerus completed Ann giron MA [facility] 1 15:42:58 11/20 Arthrd ant karlene/xoral c1-c2 completed Amanuel Kinsey MD [address] [facility] [address], [place], [address], [facility] 6 15:15:55 11/20 Osteot dsc ant 1vrt sgm lmbr completed Ann giron MA [facility] 4 09:57:21 11/20 Osteot dsc ant 1vrt sgm lmbr completed Ann giron MA [facility] 4 09:57:21 11/20 Unlisted px accessory sinus completed Ann giron MA [facility] 4 09:57:21 Imaging Results None recorded. Procedure Notes None recorded. Medical Equipment None Reported. Allergies Allergen ID Allergen Name Allergen Category Reaction Reaction Severity Criticality Documentation Date Start Date Code Code System Note Provider Name and Address Organization Details Recorded Time 62857 morphine medicatio n Not available Not available Not available 05/01/2020 7052 RxNorm SKYLER Gibson [facility] 0 12:55:45 4976 morphine sulfate medicatio n itching rash Not available Not available Not available 06/03/20142013 20340 RxNorm SKYLER Gibson [facility] 7 13:53:49 Medications Name Sig Start Date Stop Date Status Note LastModified by Organization Details LastModified Time quinapril hcl 20 mg tabs 08/03 completed Not Available Not Available Not Available advair diskus 250-50 mcg/dose aepb 2 puffs po daily 08/03 completed Not Available Not Available Not Available simvastat in 40 mg tabs 08/03 completed Not Available Not Available Not Available monteluka st sodium 10 mg tabs 1 tablet po daily 08/03 completed Not Available Not Available Not Available sertralin e hcl 100 mg tabs 1 tablet po daily 08/03 completed Not Available Not Available Not Available meloxicam 7.5 mg tabs 08/03 completed Not Available Not Available Not Available fluticaso ne propionat e 50 mcg/act susp 08/03 completed Not Available Not Available Not Available cyclobenz aprine 10 mg tablet Take 1 tablet 3 times a day by oral route for 7 days. 09/29 completed Not Available Not Available Not Available azithromy cristiana 250 mg capsule DIRECTED BELOW 09/04 completed RECORDED 09/04/20 13 10:38AM BY YAKOV MILLARD MA, OFFICE VISIT;2 TABS X 1 DAY, 1 TAB DAILY X 4 DAYS Not Available Not Available Not Available prednison e 10 mg tablet PLEASE SEE ATTACHED FOR DETAILED DIRECTIO NS 10/20 completed Not Available Not Available Not Available doxycycli ne hyclate 100 mg capsule TAKE 1 CAPSULE BY MOUTH TWICE A DAY FOR 7 DAYS 10/03 completed Not Available Not Available Not Available albuterol sulfate 2.5 mg/3 mL (0.083 %) solution for nebulizat ion INHALE THE CONTENTS OF 1 VIAL (3ML) VIA NEBULIZA R EVERY 4-6 HOURS NEEEDED active Not Available Not Available No t Available trazodone 50 mg tablet Take 1 tablet every day by oral route at bedtime. 09/11 completed Not Available Not Available Not Available cetirizin e 10 mg tablet NEEDED 09/04 completed RECORDED 09/04/20 13 10:38AM BY YAKOV MILLARD MA, OFFICE VISIT; Not Available Not Available Not Available azithromy cristiana 250 mg tablet 05/01 completed Not Available Not Available Not Available valacyclo vir 1 gram tablet Take 1 tablet every 12 hours by oral route for 7 days. 01/15 completed Not Available Not Available Not Available prednison e 20 mg tablet TAKE 2 TABLETS BY MOUTH DAILY FOR 3 DAYS, THEN 1 TABLET DAILY FOR 4 DAYS 04/29 completed Not Available Not Available Not Available sertralin e 100 mg tablet TAKE 2 TABLETS BY MOUTH AT BEDTIME active Not Available Not Available No t Available naproxen 250 mg tablet TWO TIMES DAILY 09/04 completed RECORDED 09/04/20 13 10:38AM BY YAKOV MILLARD MA, OFFICE VISIT; Not Available Not Available Not Available hydroxyzi ne pamoate 50 mg capsule TAKE 1 CAPSULE BY MOUTH THREE TIMES A DAY NEEDED active Not Available Not Available No t Available amlodipin e 2.5 mg tablet TAKE 1 TABLET BY MOUTH EVERY DAY active Not Available Not Available No t Available amlodipin e 5 mg tablet TAKE 1 TABLET BY MOUTH EVERY DAY 10/03 completed Not Available Not Available Not Available peg-elect rolyte solution 420 gram oral solution 09/21 completed Not Available Not Available Not Available simvastat in 40 mg tablet TAKE 1 TABLET BY MOUTH EVERY DAY 11/02 completed Not Available Not Available Not Available oxycodone -acetamin ophen 5 mg-325 mg tablet 03/06 completed Not Available Not Available Not Available quinapril 10 mg tablet Take 10 mg by oral route. 08/07 completed Not Available Not Available Not Available propranol ol 10 mg tablet Take 1 tablet every day by oral route for 15 days. 10/03 completed Not Available Not Available Not Available Fluticaso ne Propionat e (Inhal) 50 mcg/BLIST inhl powd DAILY, EACH SIDE 2013 active RECORDED 02/06/20 14 4:17PM BY AMANUEL KINSEY MD, PHONE ENCOUNTE R; Not Available Not Available Not Available hydromorp susanna 2 mg tablet 10/23 completed Not Available Not Available Not Available methocarb luis manuel 750 mg tablet 05/17 completed Not Available Not Available Not Available trazodone 100 mg tablet TAKE 1 TABLET BY ORAL ROUTE AT BEDTIME NEEDED FOR INSOMNIA 01/15 completed Not Available Not Available Not Available diazepam 2 mg tablet TAKE 1 TO 2 TABLETS BY MOUTH 45 MINUTES BEFORE MRI 10/20 completed Not Available Not Available Not Available baclofen 10 mg tablet 10 mg by oral route. 03/06 completed Not Available Not Available Not Available benzonata te 100 mg capsule TAKE 1 CAPSULE BY MOUTH THREE TIMES A DAY NEEDED 10/03 completed Not Available Not Available Not Available flunisoli de 25 mcg (0.025 %) nasal spray active Not Available Not Available Not Available cephalexi n 500 mg capsule TAKE 1 CAPSULE EVERY 8 HOURS BY ORAL ROUTE DIRECTED FOR 7 DAYS. 10/03 completed Not Available Not Available Not Available gabapenti n 300 mg capsule Take 4 capsules every day by oral route as directed . 05/17 completed Take 1 capsule in AM, 1 capsule in PM, and 2 capsule qhs Not Available Not Available Not Available sertralin e 25 mg tablet TAKE 1 TABLET BY MOUTH EVERY DAY 10/04 completed Not Available Not Available Not Available monteluka st 10 mg tablet TAKE 1 TABLET BY MOUTH AT BEDTIME FOR 360 DAYS. active Not Available Not Available No t Available aspirin 81 mg tablet Take 1 tablet every day by oral route. 04/16 completed Not Available Not Available Not Available quinapril 20 mg tablet TAKE 1 TABLET BY MOUTH DAILY 04/20 completed Not Available Not Available Not Available gabapenti n 100 mg capsule TAKE 1 CAPSULE BY MOUTH 2 TO 3 TIMES A DAY NEEDED FOR PAIN active Not Available Not Available No t Available lorazepam 1 mg tablet 10/23 completed Not Available Not Available Not Available zolpidem 10 mg tablet active Not Available Not Available Not Available methylpre dnisolone 4 mg tablets in a dose pack Take tapering dose over 6 days per instruct ions on package. 10/23 completed Not Available Not Available Not Available fluticaso ne propionat e 50 mcg/actua tion nasal spray,drew pension SPRAY 2 SPRAYS INTO EACH NOSTRIL EVERY DAY active Not Available Not Available No t Available sertralin e 50 mg tablet TAKE 1 TABLET BY MOUTH EVERY DAY active Not Available Not Available No t Available diazepam 5 mg tablet Take 2 tablets every day by oral route at bedtime. 04/20 completed notes he takes 1 tab. Not Available Not Available Not Available amoxicill in 875 mg-potass ium clavulana te 125 mg tablet Take 1 tablet every 12 hours by oral route for 10 days. 03/06 completed Not Available Not Available Not Available hydroxyzi ne pamoate 25 mg capsule Take 1 capsule 3 times a day by oral route as needed for 30 days. 08/07 completed Not Available Not Available Not Available B-complex with vitamin C capsule TAKE 1 CAPSULE BY MOUTH EVERY DAY 01/15 completed Not Available Not Available Not Available albuterol (refill) 90 mcg/actua tion aerosol inhaler NEEDED 09/04 completed RECORDED 09/04/20 13 10:38AM BY YAKOV MILLARD MA, OFFICE VISIT; Not Available Not Available Not Available aripipraz ole 15 mg tablet TAKE 1 TABLET BY MOUTH EVERY DAY active Not Available Not Available No t Available cyclobenz aprine 5 mg tablet 1 up to tid prn spasms 05/01 completed Not Available Not Available Not Available aripipraz ole 5 mg tablet Take 1 tablet twice a day by oral route for 15 days. 12/29 completed Not Available Not Available Not Available rosuvasta tin 20 mg tablet TAKE 1 TABLET BY MOUTH EVERY DAY active Not Available Not Available No t Available rosuvasta tin 40 mg tablet TAKE 1 TABLET BY MOUTH EVERY DAY 04/20 completed Not Available Not Available Not Available Asmanex Twisthale r 220 mcg/actua tion(60 doses) breath activated inhalr DAILY active Not Available Not Available Not Available prednison e 03/06 completed Not Available Not Available Not Available blood pressure monitor DAILY MONITORI NG OF BP FOR HTN (401.9) 10/25 completed RECORDED 10/25/20 13 10:03AM BY KLEVER MUÑOZ ON/NI CRUZ; Not Available Not Available Not Available ProAir HFA 90 mcg/actua tion aerosol inhaler Inhale 2 puffs every 4-6 hours by inhalati on route as needed for 30 days. 2020 active Not Available Not Available Not Avai lable Symbicort 160 mcg-4.5 mcg/actua tion HFA aerosol inhaler INHALE 2 PUFFS INTO THE LUNGS 2 TIMES DAILY FOR 30 DAYS. 04/29 completed Not Available Not Available Not Available diclofena c 1 % topical gel APPLY 2 GRAMS TO THE AFFECTED AREA(S) BY TOPICAL ROUTE 4 TIMES PER DAY 2024 active Not Available Not Available Not Avai lable vitamin B complex-v itamin C-folic acid 400 mcg tablet TAKE 1 TABLET BY MOUTH EVERY DAY 10/03 completed Not Available Not Available Not Available GaviLyte- G 236 gram-22.7 4 gram-6.74 gram-5.86 gram oral solution PLEASE SEE ATTACHED FOR DETAILED DIRECTIO NS 04/16 completed Not Available Not Available Not Available Dymista 137 mcg-50 mcg/spray nasal spray [place] 1 spray every day by nasal route for 30 days. 05/17 completed Not Available Not Available Not Available ProAir RespiClic k 90 mcg/actua tion breath activated 03/06 completed Not Available Not Available Not Available Melatin 3 mg tablet Take 1 tablet every day by oral route at bedtime. 04/20 completed Not Available Not Available Not Available Fluarix Quad (PF) 60 mcg (15 mcg x 4)/0.5 mL IM syringe 03/06 completed Not Available Not Available Not Available Wixela Inhub 250 mcg-50 mcg/dose powder for inhalatio n INHALE 1 PUFF BY MOUTH 2 (TWO) TIMES A DAY active Not Available Not Available No t Available Fluzone Quad (PF) 60 mcg (15 mcg x 4)/0.5 mL IM syringe PHARMACY ADMINIST NICKY 01/15 completed Not Available Not Available Not Available sertralin e 200 mg capsule Take 1 capsule every day by oral route for 60 days. 02/10 completed Not Available Not Available Not Available Vitals Date Recorded Body height Body mass index (BMI) Body weight Heart rate Oxygen saturation Body temperature Systolic And Diastolic Provider Name and Address Organization Details Last Updated DateTime 5 180.34 cm 30 kg/m2 00932.3 6 g 72 /min 98 % 97.3 [degF] 121/81 mm[Hg] Carissa Engle MA [facility] 5 09:05:10 Social History Question Answer Notes LastModified by Organizat ion Details LastModified Time Tobacco Smoking Status [facility] 15:40:11 Do You Have An Advance Directive? No Still thinking About It [email or web address] Information not available 10/03/2022 Is Blood Transfusion Acceptable In An Emergency? Yes Information not available 05/17/2017 What Is Your Level Of Caffeine Consumption? Moderate 1 Cup Of Coffee Daily Information not available 10/04/2023 How Much Tobacco Do You Chew? None Information not available 12/03/2015 What Type Of Diet Are You Following? SPECIFIC Intermittent Fasting Information not available 02/08/2023 Which Illicit Or Recreational Drugs Have You Used? None Information not available 12/03/2015 When Did You Quit Smoking? 11-15yearss incelastcig arette Information not available 09/21/2021 Live Alone Or With Others? With Others Roommates [email or web address] Information not available 10/03/2022 Do You Take Precautions To Prevent Distracted Driving? Yes Information not available 05/17/2017 How Often Do You Need To Have Someone Help You When You Read Instructions, Pamphlets, Or Other Written Material From Your Doctor Or Pharmacy? Never Information not available 05/17/2017 Have You Served In The ? No Information not available 05/17/2017 Have You Or Anyone In Your Household Had Any Of The Following Symptoms In The Last 14 Days: Sore Throat, Cough, Chills, Body Aches For Unknown Reasons, Shortness Of Breath For Unknown Reasons, Loss Of Smell, Loss Of Taste, Fever At Or Greater Than 100 Degrees Fahrenheit? No Information not available 06/11/2020 Are You Or Anyone In Your Household A Health Care Provider Or Emergency Responder? No Information not available 06/11/2020 To The Best Of Your Knowledge Have You Been In Close Proximity To Any Individual Who Tested Positive For COVID-19? No Information not available 06/11/2020 *AWV ONLY* Are You Presently Prescribed Opioid Medication By PCP Or Specialist? If YES -Provider Assess The Benefit For Other, Non-opioid Pain Therapies Instead, Even If The Patient Does Not Have OUD But Is Possibly At Risk. No Information not available 09/21/2021 Have You Recently Traveled To A COVID-19 High Risk Area Or Gathering In The Last 10 Days? No Information not available 09/21/2021 What Was The Date Of Your Most Recent Tobacco Screening? 10/20/2025 [email or web address] Information not available 10/20/2025 How Many Children Do You Have? 0 Information not available 09/21/2021 What Is Your Current Pack Years? 10packyears [email or web address] Information not available 10/03/2022 Do You Use Protection During Sex? No Information not available 12/03/2015 Do You Use Your Seat Belt Or Car Seat Routinely? Yes Information not available 09/21/2021 Seat Belts Used Routinely Yes [email or web address] Information not available 10/03/2022 Are You Sexually Active? No Information not available 09/21/2021 Smoke Alarm In Home Yes [email or web address] Information not available 10/03/2022 Do You Have Smoke And Carbon Monoxide Detectors In Your Home? Yes Information not available 09/21/2021 At What Age Did You Start Smoking Tobacco? 11 Information not available 09/21/2021 Are You Passively Exposed To Smoke? Yes Information not available 09/21/2021 How Much Tobacco Do You Smoke? 0.25 PPD Information not available 09/21/2021 Do You Use Sunscreen Routinely? No Information not available 05/17/2017 How Many Years Have You Smoked Tobacco? 8 Information not available 09/21/2021 Sex: Unknown Functional Status Question Answer Note LastModified by Organizat ion Details LastModified Time Do you use any illicit or recreational drugs? No [email or web address] Information not available 10/03/2022 Do you or have you ever used any other forms of tobacco or nicotine? No [email or web address] Information not available 10/03/2022 What is your level of alcohol consumption? None Information not available 09/21/2021 Do you or have you ever used smokeless tobacco? Never used smokeless tobacco Information not available 06/11/2020 Are you currently employed? No Information not available 10/04/2023 Are you able to walk independently without assistance or assistive devices? YESWOREST [email or web address] Information not available 10/03/2022 Are you able to care for yourself independently? 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 Never used electronic cigarettes [email or web address] Information not available 10/03/2022 What is your exercise level? None Information not available 02/08/2023 Mental Status None recorded. Family History Relationship Description Onset Age of this Age Resolved Age Notes LastModified by Organization Details LastModified Time Father Diabetes mellitus [email or web address] Not available 2014 10:51:16 Father Malignant neoplasm of colon [email or web address] Not available 2014 10:51:16 Father Hyperlipidem ia [email or web address] Not available 10/03 09:15:42 Father Heart disease [email or web address] Not available 2014 10:51:16 Father Asthma [email or web address] s Not available 09/21/2021 15:39:57 Father Obesity [email or web address] s Not available 09/21/2021 15:39:57 Father Essential hypertension [email or web address] Not available 09:15:43 Mother Hyperlipidem ia [email or web address] Not available 10/03 09:15:43 Mother Alzheimer's disease [email or web address] s Not available 09/21/2021 15:39:57 Mother Dementia [email or web address] s Not available 09/21/2021 15:39:57 Brother Diabetes mellitus Not available 10/03 09:15:43 Brother Hyperlipidem ia [email or web address] Not available 10/03 09:15:43 Sister Hyperlipidem ia [email or web address] Not available 10/03 09:15:43 Maternal Aunt Malignant neoplasm of colon [email or web address] Not available 10/03 09:15:43 Maternal Uncle Malignant neoplasm of colon abigby Not available 2014 10:51:16 Maternal Uncle Malignant neoplasm of lung abigby Not available 2014 10:51:16 Maternal Grandfather Malignant neoplasm of lung [email or web address] Not available 10/03 09:15:43 Paternal Grandmother Heart disease [email or web address] Not available 10/03 09:15:43 Maternal Grandmother Obesity [email or web address] s Not available 09/21/2021 15:39:57 Paternal Grandfather Harmful pattern of use of alcohol [email or web address] s Not available 09/21/2021 15:39:57 Unspecified Relation Substance abuse [email or web address] s Not available 09/21/2021 15:39:57 Medical History Condition Response Other N Gout N Blood Diseases N Kidney Stones N Hyperthyroidism N Breast Cancer N Lung Disease N COPD N Depression Y Hypothyroidism N Defects or Inherited Disease N Anesthesia Complications N Headaches/Migraines N Varicose Veins N Anxiety Disorder Y Obesity Y Vision or Eye Problems N Arthritis N Head Injury/Concussion N Polyps Y Infertility N Congenital Anomalies N Acid Reflux (GERD) N Cancer N Stroke N ADHD N Endometriosis N High Cholesterol Y Liver Disease N Fibromyalgia N Kidney Disease N Heart Problems N Ear or Hearing Problems N Hospitalizations Y Thyroid Problems N GI Problems N Acne N Skin Problems N Eating Disorder N Anemia N Constipation N Bladder Problems N Mental Illness N Ovarian Cancer N Diabetes N Blood Transfusions N Seizures/Epilepsy N Tuberculosis N AIDS/HIV N Congestive Heart Failure (CHF) N Eczema N Diverticulitis N Abuse/Domestic Violence N Allergies Y Asthma Y Reflux/GERD N Hepatitis N Pulmonary Embolism N Hypertension Y Osteoporosis N Chicken Pox N Autism Spectrum Disorder (ASD) N Immunizations Vaccine Type Date Status Note Provider Nam e and Address Organization Details Recorded Time Influenza, split virus, trivalent, PF 5 completed SKYLER Rob [facility] 10/20/2025 09:17:13 influenza, unspecified formulation 6 completed Luz wilburn [facility] 10/23/2023 09:08:15 Influenza, split virus, trivalent, PF 7 completed Luz wilburn [facility] 10/23/2023 09:08:15 COVID-19, mRNA, LNP-S, PF, 30 mcg/0.3 mL dose 1 completed Luz wilburn [facility] 10/23/2023 09:08:15 COVID-19, mRNA, LNP-S, PF, 30 mcg/0.3 mL dose 1 completed Luz wilburn [facility] 10/23/2023 09:08:15 COVID-19, mRNA, LNP-S, PF, 30 mcg/0.3 mL dose 1 completed Luz wilburn [facility] 10/23/2023 09:08:15 Influenza, split virus, quadrivalent, PF 0 completed Luz wilburn [facility] 10/23/2023 09:08:15 COVID-19, mRNA, LNP-S, PF, 30 mcg/0.3 mL dose 1 completed Luz Anaya null, [facility] 10/23/2023 09:08:15 COVID-19, mRNA, LNP-S, PF, 30 mcg/0.3 mL dose 1 completed Luz Anaya null, [facility] 10/23/2023 09:08:15 COVID-19, mRNA, LNP-S, PF, 30 mcg/0.3 mL dose, casey-sucrose 2 completed Luz Anaya null, [facility] 10/23/2023 09:08:15 zoster recombinant 3 completed Luz Anaya null, [facility] 10/23/2023 09:08:15 Tdap 3 completed Luz Anaya null, [facility] 10/23/2023 09:08:15 zoster recombinant 3 completed Ann Mc ME null, [facility] 04/29/2024 15:52:38 Pneumococcal conjugate PCV20, polysaccharide [id number] conjugate, adjuvant, PF 3 completed Luz wilburn, [facility] 10/23/2023 09:08:15 COVID-19, mRNA, LNP-S, PF, 50 mcg/0.5 mL 3 completed Luz Anaya null, [facility] 10/23/2023 09:08:15 Tdap 3 completed Luz wilburn, [facility] 10/23/2023 09:08:15 influenza, seasonal, intradermal, preservative free 3 completed Luz Anaya null, [facility] 10/23/2023 09:08:15 Influenza, split virus, trivalent, PF 4 completed [facility] 02:21:57 Influenza, split virus, quadrivalent, PF 1 completed SKYLER Rob, [facility] 09/21/2021 16:34:46 Influenza, split virus, quadrivalent, PF 2 completed SKYLER Rob, [facility] 10/03/2022 10:49:29 Influenza, split virus, quadrivalent, PF 3 completed Wade Olmedo MD [address], [id number], [facility] 10/04/2023 13:22:57 Influenza, split virus, trivalent, PF 4 completed Wade Olmedo MD [address], [phone], [facility] 10/18/2024 13:24:51 Past Encounters Encounter ID Performer Location Encounter Start Date Encounter Closed Date Diagnosis/Indication Diagnosis SNOMED-CT Code Diagnosis ICD10 Code Diagnosis IMO Codes Diagnosis Note [id number] Wade Olmedo MD Main Office [address] [address] 10/20/2025 08:55:46 10/20/2025 11:15:18 Adult health examination 202591995 Z00.00 Patient was counseled on healthy diet, exercise and nutrition due to Body mass index is 30 kg/m . Last PSADate: 10/30/24Re sult: 0.4Plan: Wants to repeat r/b discussed. Last Colonoscop y:Date: 03/06/25Res ult: Tubular adenomaPla n: recall 5 yrs per GI, egd in 3yrs. Vaccines:T dAP: 04/29/23Zos ter rec: 04/29/23, 10/19/23PC V20: 10/19/23In fluenza: 10/20/25Cov id: encouraged update vaccine Routine labs today Immunizati on status reviewed. Will screen based on risk factors. Regular dental and ophtho care advised as well as seat belt and sunscreen use. Distracted driving discussed. Medication reconciled . Nocturia 178387892 R35.1 Hyperlipidemia 51777936 E78.5 Actinic keratosis 866015 007 L57.0 follows derm. Body mass index 30+ - obesity 871370079 E66.9 Z68.35 Obesity 294410587 E66.9 - Diet and exercise discussed- Patient made aware of risks of obesity- Encouraged to loose weight.- Avoid starchy and fatty food- Encouraged use of green vegetables and fruits Obstructiv e sleep apnea of adult 5102308451 103 G47.33 Follows sleep med. toss turn too much had to stop using CPAP. Essential hypertension 54273009 I10 bp soft, will half dose of ccb have him follow up in 1 week if still stop will stop. He has lost some weight which may contribute . Anxiety 95955656 F41.9 Followed by psych Major depr ession in remission 82998404 F32.5 Followed by psych Needs infl uenza immunization [id number] Z23 19 YEARS AND OLDER ONLY Fatigue 82191411 R53.83 R73.01 History of alcoholism 16 8427735 F10.21 Chronic as thmatic bronchitis 266401937 J44.9 Wheezing today, saw pulhugh this morning who advised him to use his albuterol today.Foll ow up if sx don't improve. Moderate p ersistent asthma 430617707 J45.40 Acquired thrombocytopenia 29168664 D69.6 Could be due to hx of etoh use, will continue to monitor levels. Pain of knee region 1003 006966 M25.561 M25.562 G89.29 [id number] hx of etoh use and low platelet and high NSAID use will hold PO NSAID.Advi sed topical diclofenac , will get xray refer to ortho. Health Concerns Section Related Observation LastModified by Organization Detai ls LastModified Time None Recorded Concern Status LastModified by Organization Details LastModified Time None Recorded Payers Encounter Date Sequence Insurance Name Policy Number Policy Maddox Covered Member ID Maddox Member ID Guarantor Name 10/20/2025 1 [facility] ([facility] [place] [facility] [place] [id number] 1 Brian Barajas [id number] N/A N/A Notes Date Note Type Note Provider Name and Address Organization Details Recorded Time 10/20/2025 text/html Musculoskeletal PainReported by PatientHPIFor quality, patient reportsaching(burning. ). For severity, patient reportsworsening. For location, patient reportsbilateral knee. For duration, patient reportspresent for 1-6 months. For timing, patient reportsconstant. For context, patient reportsoveruse. For associated symptoms, patient reportsno fever,no weak limbs,no tingling,no numbness of the legs/feet, andon incontinence.1600 mg ibuprofen BID was not helping. Generic HPI TemplateReported by PatientROS as noted in the HPI Here for wellness visit. Reviewed chronic medications and medical problems. Discussed screening guidelines as well as goals for fitness and weight management.Following up with psych, Dr. Morales regarding mental health.Has concern for knees burn and aches. Wade Olmedo MD [address] [address], [place], [address], [facility] 10/20/2025 09:56:01
--- OUTSIDE RECORDS SUMMARY | 2025-11-06 17:33 | XMS_ITS | Clinical Summary ---
Author Organization [address] [facility] Address [address] [place] [address] Phone Care Team Providers [facility] Professor Name Role Phone Amy Pradhan MD Primary Care Provider [phone] Allergies Active Allergy Reactions Criticality Noted Date Comments Morphine Itching,Rash High 2017 Medications predniSONE (DELTASONE) 20 mg tablet 2 tab po qd x 3 days and 1 tab po qd x 4 days 4 Active amLODIPine (NORVASC) 5 mg tablet 1 Active ARIPiprazole (ABILIFY) 15 mg tablet 1 Active azelastine-flu ticasone 137-50 mcg/spray spray,non-aero feliciano 1 spray per nostril twice a day 7 Active hydrOXYzine pamoate (VISTARIL) 50 mg capsule 1 Active rosuvastatin (CRESTOR) 20 mg tablet 1 Active sertraline (ZOLOFT) 100 mg tablet 100 mg. 7 Active aspirin 81 mg chewable tablet Take 81 mg by mouth daily. Active diazePAM (VALIUM) 2 mg tablet TAKE 1 TO 2 TABLETS BY MOUTH 45 MINUTES BEFORE MRI Active gabapentin (NEURONTIN) 100 mg capsule TAKE 1 CAPSULE BY MOUTH 2 TO 3 TIMES PER DAY DEPENDING ON PAIN LEVELS Active simvastatin (ZOCOR) 40 mg tablet 7 Active polyethylene glycol (Golytely) 236-22.74-6.74 -5.86 gram solution Take 4L by mouth once for one dose. May substitue any PEG. Starting at 6PM the night before your procedure drink 1 8oz glasses at your own pace until you complete half of the gallon. Finish 2nd half of the gallon 5 hours before your procedure. 4000 mL 5 Active albuterol 2.5 mg /3 mL (0.083 %) nebulizer solution INHALE THE CONTENTS OF 1 VIAL (3ML) VIA NEBULIZAR EVERY 4-6 HOURS NEEEDED Active montelukast (SINGULAIR) 10 mg tablet TAKE 1 TABLET BY MOUTH AT BEDTIME FOR 360 DAYS. 90 tablet 3 5 Active Wixela Inhub 250-50 mcg/dose diskus inhaler Inhale 1 puff by mouth 2 (two) times a day. 1 each 5 05/27/20 26 Active fluticasone propionate (FLONASE) 50 mcg/actuation nasal spray Administer 2 sprays into each nostril 1 (one) time each day. Shake gently. Before first use, prime pump. After use, clean tip and replace cap. 16 g 2 5 04/18/20 26 Active albuterol HFA (ProAir HFA) 90 mcg/actuation inhaler Inhale 2 puffs by mouth every 4 (four) hours if needed for wheezing. 6.7 g 1 5 04/18/20 26 Active fluticasone propionate (FLONASE) 50 mcg/actuation nasal spray SPRAY 2 SPRAYS INTO EACH NOSTRIL EVERY DAY 1 10/20/20 25 Discontinu ed(Reorder ) albuterol HFA (ProAir HFA) 90 mcg/actuation inhaler Inhale 2 puffs every 4-6 hours by inhalation route as needed for 30 days. 1 10/20/20 25 Discontinu ed(Reorder ) Active Problems Problem Noted Date Diagnosed Date Dizziness 01/31/2025 Cirrhosis of liver without ascites 01/31/2025 Assessment & Plan (01/31/2025 5:31 PM EDT): Well compensated and asymptomatic at this time. Encouraged continued sobriety. Surveillance ultrasound and lab work ordered today. Orders: US Abdomen Limited; Future Prothrombin time with INR; Future Alpha fetoprotein tumor marker; Future CBC and differential; Future Comprehensive metabolic panel; Future Colon polyps 01/31/2025 History of alcohol abuse 01/31/2025 Esophageal varices 07/19/2021 Overview (01/31/2025): Seen on EGD 06/2021. Beckie for GI Assessment & Plan (01/31/2025 5:31 PM EDT): Book EGD for surveillance. Discussed with patient indications for procedure as well as risks of bleeding, infection, risk of perforation and reaction to anesthesia. Patient is aware of risk of missed lesions. Indications including screening for potential pre-malignant lesions and attempting to remove them. Patient understands and would like to proceed. Alternatives to endoscopic evaluation discussed. Benefit of procedure for screening diagnostic and therapeutic purposes discussed. The patient acknowledges risks, benefits and alternatives and all questions are answered. Patient is to follow up after the procedure for biopsy results General: Patient aware needs a ride home Nor to have liquids for at least three hours before procedure. Moderate asthma without complication 12/07/2018 Post-nasal drip 12/26/2017 Hyperlipidemia 09/19/2017 Hypertension 09/19/2017 Allergic rhinitis 08/03/2017 Asthma 08/03/2017 Encounters Date Type Department Care Team Description 10/20/2025 8:15 AM EST Office Visit Pulmonology - [address] [place] [address] Silvano Solorzano MD Mild persistent asthma, unspecified whether complicated (Primary Dx) from Last 3 Months Immunizations Immunization Administration Dates Next Due Pfizer SARS-CoV-2 COVID-19, mRNA, LNP-S, preservative free 03/25/2021,03/11/2021 Surgical History Surgery Date Site/Laterality Comments BACK SURGERY PROCEDURE: HISTORICAL BACK SURGERY OTHER SURGICAL HISTORY PROCEDURE: ---- OTHER ----; COMMENT: historic nose surgery NECK SURGERY PROCEDURE: HISTORICAL NECK SURGERY ESOPHAGOGASTRODUODENOSCOPY 09/30/2022 no varies, recall 2 years COLONOSCOPY 07/16/2021 TAx4 recall 3 years ESOPHAGOGASTRODUODENOSCOPY 07/16/2021 grade I and small (<5mm) esophageal varices. COLONOSCOPY 01/06/2015 Medical History Medical History Date Comments Hyperlipidemia 09/19/2017 DX:Hyperlipidemi a Hypertension 09/19/2017 DX:Hypertension Colon polyp Asthma LAURA (obstructive sleep apnea) Esophageal varices (CMS/HCC V24, CMS/HCC V28) Family History Medical History Relation Name Comments Colon polyps Brother Colon cancer Father Colon polyps Mother Colon polyps Sister Liver disease Neg Hx Relation Name Status Comments Brother Father Mother Sister Social History Tobacco Use Types Packs/Day Years Used Date Smoking Tobacco: Former Smokeless Tobacco: Former Alcohol Use Standard Drinks/Week Comments Not Currently 0 (1 standard drink = 0.6 oz pur e alcohol) Sober x1 yr Interpersonal Safety Answer Date Record ed Physical Abuse Unrecognized value 03/06/2025 Verbal Abuse Unrecognized value 03/06/2025 Sex and Gender Information Value Date Recorded Sex Assigned at Male 02/04/2025 1:15 PM EDT Legal Sex Male 6:44 AM EST Gender Identity Male 02/04/2025 1:15 PM EDT Sexual Orientation Straight 02/04/2025 1: 15 PM EDT Last Filed Vital Signs Vital Sign Reading Time Taken Comments Blood Pressure 117/77 10/20/2025 8:09 AM EST Pulse 77 10/20/2025 8:09 AM EST Temperature 35.7 C (96.2 F) 10/20/2025 8:09 AM EST Respiratory Rate 16 10/20/2025 8:09 AM EST Oxygen Saturation 96% 10/20/2025 8:09 AM EST Inhaled Oxygen Concentration - - Weight 99.6 kg (219 lb 9.6 oz) 10/20/2025 8:09 A M EST Height 180.3 cm (5' 11 ) 10/20/2025 8:09 AM EST Body Mass Index 30.63 10/20/2025 8:09 AM EST Plan of Treatment Upcoming Encounters Date Type Department Care Team (Late st Contact Info) Description 10/20/2026 8:30 AM EST Office Visit Pulmonology - [address] [place] [address] Silvano Solorzano MD [facility] [place] [address] Health Maintenance Due Date Last Done Comments Drug Screen 1965 Non-Opioid Controlled Substance Agreement 1965 Hepatitis A Vaccines (1 of 2 - Risk 2-dose series) 1983 RSV Immunization Adult Patients (1 - Risk 50-74 years 1-dose series) 2014 Cholesterol Screening (Lipid Panel) 10/23/2022 HIV Screening 10/23/2022 Hepatitis C Screening 10/23/2022 Social Influencers of Health Screening 10/23/2022 Hepatitis B Vaccines (1 of 3 - Risk 3-dose series) 2024 Depression Screening 11/20/2024 COVID-19 Vaccine ( season) 2025 10/19/2023, 06/15/2022, 10/16/2021, Additional history exists Influenza Vaccine (#1) 2025 , 10/04/2023, 10/03/2022, Additional history exists Hypertension/CHF/CAD Annual BMP Blood Test 02/03/2026 02/03/2025 DTaP,Tdap,and Td Vaccines (3 - Td or Tdap) 04/29/2033 04/29/2023, 02/12/2013 Colorectal Cancer Screening: Colonoscopy 03/06/2035 03/06/2025 Pneumococcal Vaccine: 50+ Years Completed 10/19/2023, 05/30/2020 Zoster Vaccines Completed 10/19/2023, 04/29/2023 HIB Vaccines Aged Out No longer eligi ble based on patient's age to complete this topic HPV Vaccines Aged Out No longer eligi ble based on patient's age to complete this topic IPV Vaccines Aged Out No longer eligi ble based on patient's age to complete this topic MMR Vaccines Aged Out No longer eligi ble based on patient's age to complete this topic Meningococcal ACWY Vaccine Aged Out N o longer eligible based on patient's age to complete this topic Meningococcal B Vaccine Aged Out No l onger eligible based on patient's age to complete this topic RSV Immunization Patients Under 20 months Aged Out No longer eligible based on patient's age to complete this topic Varicella Vaccines Aged Out No longer eligible based on patient's age to complete this topic Medical Devices Implanted Type Area Litigation Attorney Device Identifier Shelf Expiration Date Model / Serial / Lot Implants Implants N/A: Back Description:Titanium in lowe r back Procedures Procedure Name Priority Date/Time Associated Diagnosis Comments COLONOSCOPY Routine 03/06/2025 9:01 AM EDT Personal history of colon polyps, unspecified Family history of adenomatous polyp of colon Family history of colorectal cancer COMPREHENSIVE METABOLIC PANEL Routine 02/03/2025 11:57 AM EDT Cirrhosis of liver without ascites, unspecified hepatic cirrhosis type (CMS/HCC V24, CMS/HCC V28) from Last 3 Months or Most Recently Relevant to Health Maintenance Results * COLONOSCOPY Anesthesia - MAC; [facility] ENDOSCOPY (03/06/2025 9:01 AM EDT) Anatomical Region Laterality Modality Endoscopy 03/06/2025 8:38 AM EDT Impressions 03/06/2025 9:08 AM EDT - One 6 mm polyp in the descending colon, removed with a cold snare. Resected and retrieved. - Diverticulosis in the sigmoid colon. - The examination was otherwise normal on direct and retroflexion views. Recommendation: - Await pathology results. - Repeat colonoscopy in 5 years for surveillance. Narrative 03/06/2025 9:08 AM EDT [facility] Patient Name: Brian Barajas Procedure Date: 03/06/2025 8:38 AM Date of : 1965 Age: 60 Room: ROOM 15 Gender: Male Note Status: Finalized Attending MD: Med Butts MD, Procedure Date No Time: 03/06/2025 Procedure: Colonoscopy Indications: High risk colon cancer surveillance: Personal history of colonic polyps Providers: Med Butts MD Referring MD: Med Butts MD Medicines: Propofol per Anesthesia Complications: No immediate complications. Estimated Blood Loss: Estimated blood loss: none. Procedure: Pre-Anesthesia Assessment: - ASA Grade Assessment: III - A patient with severe systemic disease. After I obtained informed consent, the scope was passed under direct vision. Throughout the procedure, the patient's blood pressure, pulse, and oxygen saturations were monitored continuously.The Olympus Colonoscope was introduced through the anus and advanced to the cecum, identified by appendiceal orifice and ileocecal valve. The colonoscopy was performed without difficulty. The patient tolerated the procedure well. The quality of the bowel preparation was adequate. Findings: The perianal and digital rectal examinations were normal. A 6 mm polyp was found in the descending colon. The polyp was sessile. The polyp was removed with a cold snare. Resection and retrieval were complete. Multiple diverticula were found in the sigmoid colon. The exam was otherwise without abnormality on direct and retroflexion views. Procedure Code(s): --- Professional --- 45081, Colonoscopy, flexible; with removal of tumor(s), polyp(s), or other lesion(s) by snare technique Diagnosis Code(s): --- Professional --- Z86.010, Personal history of colonic polyps D12.4, Benign neoplasm of descending colon K57.30, Diverticulosis of large intestine without perforation or abscess without bleeding CPT copyright 2020 [employer]. All rights reserved. The codes documented in this report are preliminary and upon special assemblies supervisor review may be revised to meet current compliance requirements. Med Butts MD 03/06/2025 9:08:28 AM This report has been signed electronically.Med Butts MD Number of Addenda: 0 Note Initiated On: 03/06/2025 8:38 AM Scope In: Scope Out: Endoscopy Department at [facility] - [address] [place] [phone] Procedure Note Med Butts MD - 03/06/2025 [facility] GI Patient Name: Brian Barajas Procedure Date: 03/06/2025 8:38 AM Date of : 1965 Age: 60 Room: ROOM 15 Gender: Male Note Status: Finalized Attending MD: Med Butts MD, Procedure Date No Time: 03/06/2025 Procedure: Colonoscopy Indications: High risk colon cancer surveillance: Personalhistory of colonic polyps Providers: Med Butts MD Referring MD: Med Butst MD Medicines: Propofol per Anesthesia Complications: No immediate complications. Estimated Blood Loss: Estimated blood loss: none. Procedure: Pre-Anesthesia Assessment: - ASA Grade Assessment: III - A patient with severe systemic disease. After I obtained informed consent, the scope was passed under direct vision. Throughout theprocedure, the patient's blood pressure, pulse, and oxygen saturations were monitored continuously.The Olympus Colonoscope was introduced through the anus and advanced to the cecum, identified by appendiceal orifice and ileocecal valve. The colonoscopy was performed without difficulty. The patient tolerated the procedure well. The quality of the bowel preparation was adequate. Findings: The perianal and digital rectal examinations were normal. A 6 mm polyp was found in the descending colon. The polyp was sessile. The polyp was removed with acold snare. Resection and retrieval were complete. Multiple diverticula were found in the sigmoidcolon. The exam was otherwise without abnormality ondirect and retroflexion views. Procedure Code(s): --- Professional --- 12763, Colonoscopy, flexible; with removal of tumor(s), polyp(s), or other lesion(s) by snare technique Diagnosis Code(s): --- Professional --- Z86.010, Personal history of colonic polyps D12.4, Benign neoplasm of descending colon K57.30, Diverticulosis of large intestine without perforation or abscess without bleeding CPT copyright 2020 [employer]. All rights reserved. The codes documented in this report are preliminary and upon special assemblies supervisor reviewmay be revised to meet current compliance requirements. eMd Butts MD 03/06/2025 9:08:28 AM This report has been signed electronically.Med Butts MD Number of Addenda: 0 Note Initiated On: 03/06/2025 8:38 AM Scope In: Scope Out: Endoscopy Department at [facility] - [address] [place] [phone] IMPRESSION: - One 6 mm polyp in the descending colon, removed with a cold snare. Resected and retrieved. - Diverticulosis in the sigmoid colon. - The examination was otherwise normal on directand retroflexion views. Recommendation: - Await pathology results. - Repeat colonoscopy in 5 years for surveillance. us Med Butts MD GI~PROCEDURE ORDERABLES Fin al Result * Comprehensive metabolic panel (02/03/2025 11:57 AM EDT) [facility] Signature Sodium 137 133 - 145 mmol/L LAB CHEMISTRY METHOD 02/03/2025 2:34 PM [facility] Potassium 4.0 3.5 - 5.5 mmol/L LAB CHEMISTRY METHOD 02/03/2025 2:34 PM [facility] Chloride 104 96 - 110 mmol/L LAB CHEMISTRY METHOD 02/03/2025 2:34 PM [facility] CO2 27 21 - 32 mmol/L LAB CHEMISTRY METHOD 02/03/2025 2:34 PM [facility] Anion Gap 6 3 - 11 LAB CHEMISTRY METHOD 02/03/2025 2:34 PM [facility] Glucose 81 70 - 100 mg/dL LAB CHEMISTRY METHOD 02/03/2025 2:34 PM [facility] BUN 11 5 - 25 mg/dL LAB CHEMISTRY METHOD 02/03/2025 2:34 PM [facility] Creatinine 0.71 0.70 - 1.30 mg/dL LAB CHEMISTRY METHOD 02/03/2025 2:34 PM [facility] eGFR 104 >=60 mL/min/1. 73m2 LAB CHEMISTRY METHOD 02/03/2025 2:34 PM [facility] Comment:Calculation based on the Chronic Kidney Disease Epidemiology Collaboration (CKD-EPI) equation refit without adjustment for race. BUN/Creatinine Ratio 15.5 LAB CHEMISTRY METHOD 02/03/2025 2:34 PM [facility] Calcium 9.2 8.5 - 10.5 mg/dL LAB CHEMISTRY METHOD 02/03/2025 2:34 PM [facility] AST (SGOT) 16 10 - 42 unit/L LAB CHEMISTRY METHOD 02/03/2025 2:34 PM [facility] ALT (SGPT) 25 10 - 60 unit/L LAB CHEMISTRY METHOD 02/03/2025 2:34 PM [facility] Alkaline Phosphatase 50 42 - 121 unit/L LAB CHEMISTRY METHOD 02/03/2025 2:[address] [facility] Total Protein 7.0 6.0 - 8.0 g/dL LAB CHEMISTRY METHOD 02/03/2025 2:[address] [facility] Albumin 4.3 3.2 - 5.0 g/dL LAB CHEMISTRY METHOD 02/03/2025 2:[address] [facility] Total Bilirubin 0.6 0.0 - 1.4 mg/dL LAB CHEMISTRY METHOD 02/03/2025 2:[address] [facility] Blood Venous blood specimen / Unknown Venipuncture / Unknown 02/03/2025 11:57 AM EDT 02/03/2025 12:44 PM EDT us Pat [facility] LAB BLOOD ORDERABLES Final Resu lt [facility] [address] [place] [address], from Last 3 Months or Most Recently Relevant to Health Maintenance Insurance [facility] [place] [address] Care Teams [facility] Professor Relationship Specialty Start Date End Date Amy Pradhan MD [address] [facility] [address] [place] [id number] PCP - General Family Medicine 03/06/25
--- OUTSIDE RECORDS SUMMARY | 2025-11-06 17:33 | XMS_ITS | Data Portability ---
Author Organization [facility], Main Office Address [address] [place] [address] Care Team Providers Care Fitness Trainer Name Role Phone WESLY BUTLER Orthopedic Surgeon [phone] JACKY KNIGHT [employer] SUJIT HAM Neurosurgeon POLLY RAZO Service Shop Foreman [employer] (CENTRIFUGAL SUPERVISOR) SERVICES Diandra chiatrist WADE PRADHAN Primary Care Provider [phone] JUAN FERNANDEZ [employer] [phone] Assessment Encounter Date Assessment Date Assessment LastModified by Organization Details LastModified Time 04/29/2024 04/29/2024 This service was provided using telemedicine. Patient consented to video & audio visit Patient was located in the [facility]. Provider was located in the office. No other persons participated in the telemedicine visit except for the patient unless otherwise indicated here. Total time of visit was 15 minutes. [email or web address] Not available 04/29/2024 16:18:21 Plan of Treatment Reminders Order Date Submit Date Provider Last Modified By Organization Details Last Modified Time Details Appointments None recorded. Lab cobalamin and folate panel, serum 2024 025 ANTOLIN [facility] (Centralized Electronic Ordering - All Locations), Patient Can Go To The Location Of Their Choice, [address] 16:07:20 lipid panel, serum 2024 025 ANTOLIN [facility], [address] [facility], [address], [address], 5 06:09:29 CBC w/ auto diff 2024 025 ANTOLIN [facility], [address], [address], [place], [address], 5 06:09:28 TSH, ultra-sens itive, serum 2024 025 ANTOLIN [facility] (Centralized Electronic Ordering - All Locations), Patient Can Go To The Location Of Their Choice, 16:07:21 CMP, serum or plasma 2024 025 ANTOLIN [facility] (Centralized Electronic Ordering - All Locations), Patient Can Go To The Location Of Their Choice, 16:07:20 PSA, serum or plasma - Screening 2024 025 ANTOLIN [facility], [address], [address], [place], [address], 5 06:09:29 magnesium, serum or plasma 2024 025 ANTOLIN [facility], [address], [address], [place], [address], 5 06:09:30 anaplasma phagocytop hilum + ehrlichia chaffeensi s IgG panel, titer, serum 2023 024 ANTOLIN [facility] (Centralized Electronic Ordering - All Locations), Patient Can Go To The Location Of Their Choice, [address] 4 16:06:23 lipid panel, serum 2023 024 ANTOLIN [facility], [address], [address], [place], [address], 4 16:06:23 CBC w/ auto diff 2023 024 ANTOLIN [facility], [address], [address], [place], [address], 16:06:22 TSH, ultra-sens itive, serum 2023 024 ANTOLIN [facility] (Centralized Electronic Ordering - All Locations), Patient Can Go To The Location Of Their Choice, [address] 16:06:25 CMP, serum or plasma 2023 024 ANTOLIN [facility] (Centralized Electronic Ordering - All Locations), Patient Can Go To The Location Of Their Choice, [address] 16:06:20 PSA, serum or plasma - Screening 2023 024 ANTOLIN [facility], [address], [address], [place], [address], 16:06:24 magnesium, serum or plasma 2023 024 ANTOLIN [facility], [address], [address], [place], [address], 16:06:26 unlisted lab - platelet count, citrated 2022 023 ANTOLIN [facility], [address], [address], [place], [address], 3 17:32:10 lipid panel, serum 2022 023 ANTOLIN [facility], [address], [address], [place], [address], 3 18:41:13 CBC w/ auto diff 2022 023 ANTOLIN [facility], [address], [address], [place], [address], 3 16:46:19 TSH, serum or plasma 2022 023 ANTOLIN [facility], [address], [address], [place], [address], 3 18:45:12 CMP, serum or plasma 2022 023 ANTOLIN [facility], [address], [address], [place], [address], 3 18:41:12 HbA1c (hemoglobi n A1c), blood 2022 023 ANTOLIN [facility], [address], [address], [place], [address], 3 19:30:25 PSA, serum or plasma - Screening 2022 023 ANTOLIN [facility], [address], [address], [place], [address], 3 18:45:10 magnesium, serum or plasma 2022 023 ANTOLIN [facility], [address], [address], [place], [address], 3 18:41:14 Referral orthopedic surgeon referral 2024 025 ANTOLIN Chi MD, [address] [facility], [address], [place], [address], 5 17:19:37 gastroente rologist referral - Needs colon cancer screening 2023 024 ANTOLIN Not available 5 16:53:22 Procedures colonoscop y screening (PROC) 2023 024 KATHERINE Fernandez MD, [address] [facility], [address], [place], [address], 4 14:05:18 Surgeries None recorded. Imaging XR, knee, weightbear ing 2024 025 ANTOLIN Not available 5 08:40:43 XR, knee, 3 view 2024 025 ANTOLIN Not available 5 08:31:02 XR, ribs, unilateral , w/ PA chest 2023 024 ANTOLIN Not available 15:02:11 Medication Orders diclofenac 1 % topical gel 2024 025 ANTOLIN [id number], [address] [place], [address], 09:55:54 Patient TargetsNo targets recorded. Patient Instructions Encounter Date Encounter Id Patient Instructions Last Modified By Organization Details Last Modified Time 10/04/2023 [id number] Well Visit 50 to 65: Care Instructions [email or web address] Not available 10/04/2023 13:25:24 Prostate Cancer Screening ckokar Not available 10/04/2023 13:25:23 Starting a Weight-Loss Plan: Care Instructions ckokar Not available 10/04/2023 13:25:23 04/29/2024 [id number] high blood pressure: care instructions ckokar Not available 04/29/2024 16:19:37 learning about high blood pressure ckokar Not available 04/29/2024 16:19:37 10/18/2024 [id number] Well Visit 50 to 65: Care Instructions [email or web address] Not available 10/18/2024 13:16:24 Prostate Cancer Screening ckokar Not available 10/18/2024 13:16:23 learning about colon cancer ckokar Not available 10/18/2024 13:16:23 Starting a Weight-Loss Plan: Care Instructions ckokar Not available 10/18/2024 13:16:23 04/16/2025 [id number] high blood pressure: care instructions ckokar Not available 04/16/2025 09:46:24 learning about high blood pressure ckokar Not available 04/16/2025 09:46:24 10/20/2025 [id number] Well Visit 50 to 65: Care Instructions ckokar Not available 10/20/2025 09:30:27 Prostate Cancer Screening ckokar Not available 10/20/2025 09:30:26 Starting a Weight-Loss Plan: Care Instructions ckokar Not available 10/20/2025 09:30:27 Reason for Referral [employer] Referral for Screening for malignant neoplasm of colon Needs colon cancer screening Referring Physician: Wade Pradhan, Family Medicine, Encounter Date: 10/18/2024 Orthopedic Surgeon Referral for Pain of knee region Referring Physician: Wade Pradhan, Family Medicine, Encounter Date: 10/20/2025 Results Created Date Observation Date Name Description Value Unit Range Abnormal Flag Note LastModifiedBy Organization Detail LastModifiedTime 10/04/2010/04/2023 COMPL ETE BLOOD COUNT WBC 6.6 K/mm3 (4.0-1 1.0) Not Available [facility] (Centralized Electronic Ordering - All Locations) Patient Can Go To The Location Of Their Choice, 10/04/2023 16:46:19 10/04/2010/04/2023 COMPL ETE BLOOD COUNT RBC 4.88 M/mm3 (4.70- 6.10) Not Available [facility] (Centralized Electronic Ordering - All Locations) Patient Can Go To The Location Of Their Choice, 10/04/2023 16:46:19 10/04/2010/04/2023 COMPL ETE BLOOD COUNT HGB 14.8 gm/dL (13.7- 17.1) Not Available [facility] (Centralized Electronic Ordering - All Locations) Patient Can Go To The Location Of Their Choice, 10/04/2023 16:46:19 10/04/2010/04/2023 COMPL ETE BLOOD COUNT HCT 43.5 % (40.5- 50.0) Not Available [facility] (Centralized Electronic Ordering - All Locations) Patient Can Go To The Location Of Their Choice, 10/04/2023 16:46:19 10/04/2010/04/2023 COMPL ETE BLOOD COUNT MCV 89.1 fL (80.0- 94.0) Not Available [facility] (Centralized Electronic Ordering - All Locations) Patient Can Go To The Location Of Their Choice, 10/04/2023 16:46:19 10/04/2010/04/2023 COMPL ETE BLOOD COUNT MCH 30.3 pg (27.0- 34.0) Not Available [facility] ([facility]ized Electronic Ordering - All Locations) Patient Can Go To The Location Of Their Choice, 10/04/2023 16:46:19 10/04/2010/04/2023 COMPL ETE BLOOD COUNT MCHC 34.0 g/dL (33.0- 37.0) Not Available [facility] ([facility]ized [facility] Ordering - All Locations) Patient Can Go To The Location Of Their Choice, 10/04/2023 16:46:19 10/04/2010/04/2023 COMPL ETE BLOOD COUNT plt 116 K/mm3 (150-4 60) low Not Available [facility] (Centralized Electronic Ordering - All Locations) Patient Can Go To The Location Of Their Choice, 10/04/2023 16:46:19 10/04/2010/04/2023 COMPL ETE BLOOD COUNT RDW-SD 48.2 fL (<47.0 ) high Not Available [facility] (Centralized Electronic Ordering - All Locations) Patient Can Go To The Location Of Their Choice, 10/04/2023 16:46:19 10/04/2010/04/2023 COMPL ETE BLOOD COUNT MPV 13.1 fL (9.4-1 2.4) high Not Available [facility] ([facility]ized Electronic Ordering - All Locations) Patient Can Go To The Location Of Their Choice, 10/04/2023 16:46:19 10/04/2010/04/2023 COMPL ETE BLOOD COUNT automated NRBC 0.0 #/100 _WBC' s Not Available [facility] (Centralized Electronic Ordering - All Locations) Patient Can Go To The Location Of Their Choice, 10/04/2023 16:46:19 10/04/2010/04/2023 COMPL ETE BLOOD COUNT abs. NRBC 0.0 K/mm3 Not Available [facility] (Centralized Electronic Ordering - All Locations) Patient Can Go To The Location Of Their Choice, 10/04/2023 16:46:19 10/04/2010/04/2023 CITRA JAYSON PLATE LET COUNT citrated platelet count 83 K/mm3 (150-4 60) low Testi ng perfo rmed on citra jayson plasm a (blue top tube) Not Available [facility] ([facility]ized Electronic Ordering - All Locations) Patient Can Go To The Location Of Their Choice, 10/04/2023 17:32:10 10/04/2010/04/2023 CITRA JAYSON PLATE LET COUNT citrated platelet count 83 K/mm3 (150-4 60) low Testi ng perfo rmed on citra jayson plasm a (blue top tube) PLATE LET CLUMP ING NOTED IN CITRA JAYSON SPECI MEN,P LATEL ET COUNT MAY BE DIEGO EOUSL Y DECRE ASED. Not Available [facility] (Centralized Electronic Ordering - All Locations) Patient Can Go To The Location Of Their Choice, 10/04/2023 17:34:09 10/04/2010/04/2023 COMPR EHENS ARTIE METAB OLIC PANL glucose 88 mg/dL (70-99 ) Not Available [facility] (Centralized Electronic Ordering - All Locations) Patient Can Go To The Location Of Their Choice, 10/04/2023 18:41:11 10/04/2010/04/2023 COMPR EHENS ARTIE METAB OLIC PANL BUN 7 mg/dL (6-20) Not Available [facility] ([facility]ized [facility] Ordering - All Locations) Patient Can Go To The Location Of Their Choice, 10/04/2023 18:41:11 10/04/2010/04/2023 COMPR EHENS ARTIE METAB OLIC PANL creatinine 0.7 mg/dL (0.7-1 .2) Not Available [facility] ([facility] Ordering - All Locations) Patient Can Go To The Location Of Their Choice, 10/04/2023 18:41:11 10/04/2010/04/2023 COMPR EHENS ARTIE METAB OLIC PANL sodium 137 mmol/ L (133-1 45) Not Available [facility] ([facility]ized [facility] Ordering - All Locations) Patient Can Go To The Location Of Their Choice, 10/04/2023 18:41:11 10/04/2010/04/2023 COMPR EHENS ARTIE METAB OLIC PANL potassium 4.1 mmol/ L (3.6-5 .2) Not Available [facility] (Centralized Electronic Ordering - All Locations) Patient Can Go To The Location Of Their Choice, 10/04/2023 18:41:11 10/04/2010/04/2023 COMPR EHENS ARTIE METAB OLIC PANL chloride 102 mmol/ L (98-10 7) Not Available [facility] ([facility]ized [facility] Ordering - All Locations) Patient Can Go To The Location Of Their Choice, 10/04/2023 18:41:11 10/04/2010/04/2023 COMPR EHENS ARTIE METAB OLIC PANL bicarbonate 25 mmol/ L (22-29 ) Not Available [facility] ([facility]ized [facility] Ordering - All Locations) Patient Can Go To The Location Of Their Choice, 10/04/2023 18:41:11 10/04/2010/04/2023 COMPR EHENS ARTIE METAB OLIC PANL anion gap 10 (4-17) Not Available [facility] ([facility]ized [facility] Ordering - All Locations) Patient Can Go To The Location Of Their Choice, 10/04/2023 18:41:11 10/04/2010/04/2023 COMPR EHENS ARTIE METAB OLIC PANL albumin 5.0 gm/dL (3.4-4 .8) high Not Available [facility] (Centralized Electronic Ordering - All Locations) Patient Can Go To The Location Of Their Choice, 10/04/2023 18:41:11 10/04/2010/04/2023 COMPR EHENS ARTIE METAB OLIC PANL calcium 9.4 mg/dL (8.6-1 0.5) Not Available [facility] (Centralized Electronic Ordering - All Locations) Patient Can Go To The Location Of Their Choice, 10/04/2023 18:41:11 10/04/2010/04/2023 COMPR EHENS ARTIE METAB OLIC PANL bilirubin,to carlotta 0.6 mg/dL (0-1.2 ) Not Available [facility] ([facility]ized [facility] Ordering - All Locations) Patient Can Go To The Location Of Their Choice, 10/04/2023 18:41:11 10/04/2010/04/2023 COMPR EHENS ARTIE METAB OLIC PANL total protein 6.8 gm/dL (6.2-8 .2) Not Available [facility] (Centralized Electronic Ordering - All Locations) Patient Can Go To The Location Of Their Choice, 10/04/2023 18:41:11 10/04/2010/04/2023 COMPR EHENS ARTIE METAB OLIC PANL Ag ratio 2.8 Not Available [facility] ([facility]ized Electronic Ordering - All Locations) Patient Can Go To The Location Of Their Choice, 10/04/2023 18:41:11 10/04/2010/04/2023 COMPR EHENS ARTIE METAB OLIC PANL AST 18 U/L (0-40) Not Available [facility] ([facility]ized [facility] Ordering - All Locations) Patient Can Go To The Location Of Their Choice, 10/04/2023 18:41:11 10/04/2010/04/2023 COMPR EHENS ARTIE METAB OLIC PANL alk phos 52 U/L (40-12 9) Not Available [facility] ([facility]ized [facility] Ordering - All Locations) Patient Can Go To The Location Of Their Choice, 10/04/2023 18:41:11 10/04/2010/04/2023 COMPR EHENS ARTIE METAB OLIC PANL ALT 16 U/L (0-41) Not Available [facility] ([facility] Ordering - All Locations) Patient Can Go To The Location Of Their Choice, 10/04/2023 18:41:11 10/04/2010/04/2023 COMPR EHENS ARTIE METAB OLIC PANL estimated GFR creatinine 105 mL/mi n/1.7 3_M2 Creat inine based estim ated glome rular filtr ation (eGFR ) in adult s is calcu lated using the Natio nal Kidne y Found ation recom ana lilia d 2020 CKD-E PI equat ion. Estim ates GFR from serum creat inine , age and sex. Not Available [facility] ([facility]ized [facility] Ordering - All Locations) Patient Can Go To The Location Of Their Choice, 10/04/2023 18:41:11 10/04/2010/04/2023 LIPID PANEL cholesterol, total 161 mg/dL (<200) Not Available [facility] ([facility] - [facility] Locations) Patient Can Go To The Location Of Their Choice, 10/04/2023 18:41:13 10/04/2010/04/2023 LIPID PANEL triglyceride 134 mg/dL (<150) Not Available [facility] ([facility]ations) Patient Can Go To The Location Of Their Choice, 10/04/2023 18:41:13 10/04/2010/04/2023 LIPID PANEL HDL chol 38 mg/dL (>39) low Not Available [facility] ([facility]ized [facility] Ordering - All Locations) Patient Can Go To The Location Of Their Choice, 10/04/2023 18:41:13 10/04/2010/04/2023 LIPID PANEL LDL cholesterol, calculated 96 mg/dL (0-130 ) Not Available [facility] ([facility] Ordering - All Locations) Patient Can Go To The Location Of Their Choice, 10/04/2023 18:41:13 10/04/2010/04/2023 LIPID PANEL non HDL cholesterol (calc) 123 mg/dL (<160) Not Available [facility] ([facility] Order[facility] - All Locations) Patient Can Go To The Location Of Their Choice, 10/04/2023 18:41:13 10/04/2010/04/2023 MAGNE SIUM magnesium 2.3 mg/dL (1.6-2 .3) Not Available [facility] ([facility] Ordering - All Locations) Patient Can Go To The Location Of Their Choice, 10/04/2023 18:41:14 10/04/2010/04/2023 PSA SCREE N PSA 0.4 NG/mL (0-4) TEST PERFO RMED USING THE DEANNE ELECT DEANNE MILLU MINES CENCE TOTAL PSA ASSAY . PSA VALUE S OBTAI DALY WITH OTHER ASSAY METHO DS OR KITS CANNO T BE USED INTER VELIZ EABLY . Not Available [facility] ([facility]ized [facility] Ordering - All Locations) Patient Can Go To The Location Of Their Choice, 10/04/2023 18:45:10 10/04/2010/04/2023 TSH WITH REFLE X TO FT4 TSH 1.76 uIU/m L (0.4-4 .2) Not Available [facility] ([facility] Ordering - All Locations) Patient Can Go To The Location Of Their Choice, 10/04/2023 18:45:11 10/04/2010/04/2023 HEMOG LOBIN A1C hemoglobin A1C 5.1 % (4.0-5 .6) MONIT ORING : In known diabe tic patie nts, hemog lobin A1c targe ts shoul d be discu ssed with healt h care provi rush. DIAGN OSTIC USE: The Ameri can Diabe giovanna Assoc iatio n (ADA) and the World Healt h Organ izati on (WHO) recom mend the use of HbA1c to diagn ose diabe giovanna using a thres hold of 6.5%. Patie nts who have an HbA1c betwe en 5.7% and 6.4% are consi dered at incre ased risk for devel oping diabe giovanna in the futur eNicoletet MCDONALDTI ON: False ly low HbA1c resul ts may be obser pantera in patie nts with hemol ytic anemi a, homoz ygous forms of abnor mal hemog lobin (e.g. SS, CC, SC), pregn elizabeth, recen t blood loss or hemog lobin F great er than 7%. Fruct osami ne may be used as an alter jens test in these cases . REFER ENCE: ADA: Stand ards of Medic al Care in Diabe giovanna 2019, The Journ al of Clini maddy and Appli ed Resea rch and Educa tion Volum e 43, Suppl ement 1 Not Available [facility] ([facility]ized [facility] Ordering - All Locations) Patient Can Go To The Location Of Their Choice, [address] 10/04/2023 19:30:25 10/30/20 24 10/30/2024 PLATE LET COUNT ON CITRA JAYSON BLD plt count, citrated bld 107 K/mm3 150-46 0 below low normal Plate let clump ing noted in citra jayson speci men, plate let count may be diego eousl y decre ased Testi ng perfo rmed on citra jayson plasm a (blue top tube) Not Available [facility] [address] [place], [address], 10/30/2024 14:14:32 10/30/20 24 10/30/2024 CMP14 (REFL EX HGB A1C) glucose 105 mg/dL 70-99 above high normal Not Available [facility] [address] [facility], [place], [address], 11/01/2024 16:06:20 10/30/20 24 10/30/2024 CMP14 (REFL EX HGB A1C) BUN 10 mg/dL 8-27 normal Not Available [facility] [address] [facility], [place], [address], 11/01/2024 16:06:20 10/30/20 24 10/30/2024 CMP14 (REFL EX HGB A1C) creatinine 0.65 mg/dL 0.76-1 .27 below low normal Not Available [facility] [address] [facility], [place], [address], 11/01/2024 16:06:20 10/30/20 24 10/30/2024 CMP14 (REFL EX HGB A1C) eGFR 108 mL/mi n/1.7 3 >59 normal Not Available [facility] [address] [facility], [place], [address], 11/01/2024 16:06:20 10/30/20 24 10/30/2024 CMP14 (REFL EX HGB A1C) BUN/creatini ne ratio 15 10-24 normal Not Available [facility] [address] [facility], [place], [address], 11/01/2024 16:06:20 10/30/20 24 10/30/2024 CMP14 (REFL EX HGB A1C) sodium 139 mmol/ L 134-14 4 normal Not Available [facility] [address] [place], [address], 11/01/2024 16:06:20 10/30/20 24 10/30/2024 CMP14 (REFL EX HGB A1C) potassium 4.5 mmol/ L 3.5-5. 2 normal Not Available [facility] [address] [place], [address], 11/01/2024 16:06:20 10/30/20 24 10/30/2024 CMP14 (REFL EX HGB A1C) chloride 103 mmol/ L 96-106 normal Not Available [facility] [address] [place], [address], 11/01/2024 16:06:20 10/30/20 24 10/30/2024 CMP14 (REFL EX HGB A1C) carbon dioxide, total 23 mmol/ L 20-29 normal Not Available [facility] [address] [facility], [place], [address], 11/01/2024 16:06:20 10/30/20 24 10/30/2024 CMP14 (REFL EX HGB A1C) calcium 9.3 mg/dL 8.6-10 .2 normal Not Available [facility] [address] [place], [address], 11/01/2024 16:06:20 10/30/20 24 10/30/2024 CMP14 (REFL EX HGB A1C) protein, total 6.5 g/dL 6.0-8. 5 normal Not Available [facility] [address] [place], [address], 11/01/2024 16:06:20 10/30/20 24 10/30/2024 CMP14 (REFL EX HGB A1C) albumin 4.6 g/dL 3.8-4. 9 normal Not Available [facility] [address] [place], [address], 11/01/2024 16:06:20 10/30/20 24 10/30/2024 CMP14 (REFL EX HGB A1C) globulin, total 1.9 g/dL 1.5-4. 5 Not Available [facility] [address] [place], [address], 11/01/2024 16:06:20 10/30/20 24 10/30/2024 CMP14 (REFL EX HGB A1C) bilirubin, total 0.5 mg/dL 0.0-1. 2 normal Not Available [facility] [address] [place], [address], 11/01/2024 16:06:20 10/30/20 24 10/30/2024 CMP14 (REFL EX HGB A1C) alkaline phosphatase 57 IU/L 44-121 normal Not Available [facility] [address] [place], [address], 11/01/2024 16:06:20 10/30/20 24 10/30/2024 CMP14 (REFL EX HGB A1C) AST (SGOT) 14 IU/L 0-40 normal Not Available [facility] [address] [place], [address], 11/01/2024 16:06:20 10/30/20 24 10/30/2024 CMP14 (REFL EX HGB A1C) ALT (SGPT) 14 IU/L 0-44 normal Not Available [facility] [address] [place], [address], 11/01/2024 16:06:20 10/30/20 24 10/31/2024 CMP14 (REFL EX HGB A1C) hemoglobin A1C 5.3 % 4.8-5. 6 normal Predi abete s: 5.7 - 6.4 Diabe giovanna: >6.4 Glyce letty contr ol for adult s with diabe giovanna: <7.0 Not Available [facility] [address] [place], [address], 11/01/2024 16:06:20 10/30/20 24 10/30/2024 CBC WITH DIFFE RENTI AL/PL ATELE T WBC 5.1 x10e3 /uL 3.4-10 .8 normal Not Available [facility] [address] [place], [address], 11/01/2024 16:06:21 10/30/20 24 10/30/2024 CBC WITH DIFFE RENTI AL/PL ATELE T RBC 4.78 x10e6 /uL 4.14-5 .80 normal Not Available [facility] [address] [facility], [place], [address], 11/01/2024 16:06:21 10/30/20 24 10/30/2024 CBC WITH DIFFE RENTI AL/PL ATELE T hemoglobin 14.9 g/dL 13.0-1 7.7 normal Not Available [facility] [address] [facility], [place], [address], 11/01/2024 16:06:21 10/30/20 24 10/30/2024 CBC WITH DIFFE RENTI AL/PL ATELE T hematocrit 44.3 % 37.5-5 1.0 normal Not Available [facility] [address] [facility], [place], [address], 11/01/2024 16:06:21 10/30/20 24 10/30/2024 CBC WITH DIFFE RENTI AL/PL ATELE T MCV 93 fL 79-97 normal Not Available [facility] [address] [place], [address], 11/01/2024 16:06:21 10/30/20 24 10/30/2024 CBC WITH DIFFE RENTI AL/PL ATELE T MCH 31.2 pg 26.6-3 3.0 normal Not Available [facility] [address] [place], [address], 11/01/2024 16:06:21 10/30/20 24 10/30/2024 CBC WITH DIFFE RENTI AL/PL ATELE T MCHC 33.6 g/dL 31.5-3 5.7 normal Not Available [facility] [address] [place], [address], 11/01/2024 16:06:21 10/30/20 24 10/30/2024 CBC WITH DIFFE RENTI AL/PL ATELE T RDW 13.0 % 11.6-1 5.4 Not Available [facility] ([facility]) [address] [facility], [place], [address], 11/01/2024 16:06:21 10/30/20 24 10/30/2024 CBC WITH DIFFE RENTI AL/PL ATELE T platelets 142 x10e3 /uL 150-45 0 below low normal Not Available [facility] [address] [facility], [place], [address], 11/01/2024 16:06:21 10/30/20 24 10/30/2024 CBC WITH DIFFE RENTI AL/PL ATELE T neutrophils 56 % not estab. normal Not Available [facility] [address] [facility], [place], [address], 11/01/2024 16:06:21 10/30/20 24 10/30/2024 CBC WITH DIFFE RENTI AL/PL ATELE T lymphs 27 % not estab. normal Not Available [facility] [address] [facility], [place], [address], 11/01/2024 16:06:21 10/30/20 24 10/30/2024 CBC WITH DIFFE RENTI AL/PL ATELE T monocytes 12 % not estab. normal Not Available [facility] [address] [facility], [place], [address], 11/01/2024 16:06:21 10/30/20 24 10/30/2024 CBC WITH DIFFE RENTI AL/PL ATELE T eos 4 % not estab. normal Not Available [facility] [address] [facility], [place], [address], 11/01/2024 16:06:21 10/30/20 24 10/30/2024 CBC WITH DIFFE RENTI AL/PL ATELE T basos 1 % not estab. normal Not Available [facility] ([facility]) [address] [facility], [place], [address], 11/01/2024 16:06:21 10/30/20 24 10/30/2024 CBC WITH DIFFE RENTI AL/PL ATELE T immature cells GRINDER OPERATOR Not Available [facility] [address] [place], [address], 11/01/2024 16:06:21 10/30/20 24 10/30/2024 CBC WITH DIFFE RENTI AL/PL ATELE T neutrophils (absolute) 2.9 x10e3 /uL 1.4-7. 0 normal Not Available [facility] [address] [place], [address], 11/01/2024 16:06:21 10/30/20 24 10/30/2024 CBC WITH DIFFE RENTI AL/PL ATELE T lymphs (absolute) 1.4 x10e3 /uL 0.7-3. 1 normal Not Available [facility] ([facility] [address] [place], [address], 11/01/2024 16:06:21 10/30/20 24 10/30/2024 CBC WITH DIFFE RENTI AL/PL ATELE T monocytes(ab solute) 0.6 x10e3 /uL 0.1-0. 9 normal Not Available [facility] [address] [place], [address], 11/01/2024 16:06:21 10/30/20 24 10/30/2024 CBC WITH DIFFE RENTI AL/PL ATELE T eos (absolute) 0.2 x10e3 /uL 0.0-0. 4 normal Not Available [facility] [address] [place], [address], 11/01/2024 16:06:21 10/30/20 24 10/30/2024 CBC WITH DIFFE RENTI AL/PL ATELE T baso (absolute) 0.1 x10e3 /uL 0.0-0. 2 normal Not Available [facility] [address] [facility], [place], [address], 11/01/2024 16:06:21 10/30/20 24 10/30/2024 CBC WITH DIFFE RENTI AL/PL ATELE T immature granulocytes 0 % not estab. Not Available [facility] [address] [facility], [place], [address], 11/01/2024 16:06:21 10/30/20 24 10/30/2024 CBC WITH DIFFE RENTI AL/PL ATELE T immature grans (abs) 0.0 x10e3 /uL 0.0-0. 1 Not Available [facility] [address] [facility], [place], [address], 11/01/2024 16:06:21 10/30/20 24 10/30/2024 CBC WITH DIFFE RENTI AL/PL ATELE T NRBC GRINDER OPERATOR Not Available [facility] [address] [facility], [place], [address], 11/01/2024 16:06:21 10/30/20 24 10/30/2024 CBC WITH DIFFE RENTI AL/PL ATELE T hematology comments: GRINDER OPERATOR Not Available [facility] [address] [facility], [place], [address], 11/01/2024 16:06:21 10/30/20 24 10/31/2024 LIPID PANEL cholesterol, total 159 mg/dL 100-19 9 normal Not Available [facility] [address] [facility], [place], [address], 11/01/2024 16:06:22 10/30/20 24 10/31/2024 LIPID PANEL triglyceride s 117 mg/dL 0-149 normal Not Available [facility] [address] [facility], [place], [address], 11/01/2024 16:06:22 10/30/20 24 10/31/2024 LIPID PANEL HDL cholesterol 42 mg/dL >39 normal Not Available [facility] [address] [facility], [place], [address], 11/01/2024 16:06:22 10/30/20 24 10/31/2024 LIPID PANEL VLDL cholesterol maddy 21 mg/dL 5-40 Not Available [facility] [address] [facility], [place], [address], 11/01/2024 16:06:22 10/30/20 24 10/31/2024 LIPID PANEL LDL chol calc ([facility]) 96 mg/dL 0-99 Not Available [facility] [address] [facility], [place], [address], 11/01/2024 16:06:22 10/30/20 24 10/31/2024 LIPID PANEL LDL calc comment: GRINDER OPERATOR Not Available [facility] [address] [facility], [place], [address], 11/01/2024 16:06:22 10/30/20 24 10/30/2024 TICK- BORNE DISEA SE AB PROFI LE result comments: Commen t Antib aneta titer s may be negat artie in the first 7-10 days of illne [...] is, respe ctive ly. Not Available [facility] [address] [facility], [place], [address], 11/01/2024 16:06:23 10/30/20 24 10/31/2024 TICK- BORNE DISEA SE AB PROFI LE lyme total antibody susie Negati ve negati ve Lyme antib odies not detec jayson. Refle x testi ng is not indic ated. No labor atory evide nce of infec tion with B. burgd orfer i (Lyme disea se). Negat artie resul ts may occur in patie nts recen tly infec jayson (less than or equal to 14 days) with B. burgd orfer i. If recen t infec tion is suspe cted, repea t testi ng on a new sampl e colle cted in 7 to 14 days is recom ana lilia d. Not Available [facility] [address] [place], [address], 11/01/2024 16:06:23 10/30/20 24 11/01/2024 TICK- BORNE DISEA SE AB PROFI LE babesia microti IgG <1:10 neg:<1 :10 Not Available [facility] [address] [place], [address], 11/01/2024 16:06:23 10/30/20 24 11/01/2024 TICK- BORNE DISEA SE AB PROFI LE E. chaffeensis IgG Negati ve neg:<1 :64 Not Available [facility] [address] [place], [address], 11/01/2024 16:06:23 10/30/20 24 11/01/2024 TICK- BORNE DISEA SE AB PROFI LE A. phagocytophi lum IgG Negati ve neg:<1 :64 Not Available [facility] [address] [place], [address], 11/01/2024 16:06:23 10/30/20 24 10/30/2024 PSA TOTAL (REFL EX TO FREE) reflex criteria Commen t The perce nt free PSA is perfo rmed on a refle x basis only when the total PSA is betwe en 4.0 and 10.0 ng/mL . Not Available [facility] [address] [place], [address], 11/01/2024 16:06:24 10/30/20 24 10/31/2024 PSA TOTAL (REFL EX TO FREE) prostate specific Ag 0.4 NG/mL 0.0-4. 0 normal Deanne ECLIA metho dolog y. Accor ding to [...] kits canno t be used inter veliz eably . Resul ts canno t be inter prete d as absol cocopah evide nce of the prese nce or absen ce of leslee calero se. Not Available [facility] [address] [facility], [place], [address], 11/01/2024 16:06:24 10/30/20 24 10/31/2024 TSH RFX ON ABNOR MAL TO FREE T4 TSH 0.997 uIU/m L 0.450- 4.500 normal Not Available [facility] [address] [facility], [place], [address], 11/01/2024 16:06:25 10/30/20 24 10/31/2024 MAGNE SIUM magnesium 2.3 mg/dL 1.6-2. 3 normal Not Available [facility] [address] [facility], [place], [address], 11/01/2024 16:06:26 03/06/20 25 03/06/2025 TISSU E EXAM .note See Note Origi nal Order ing Provi rush: J[facility] TIDWELL [facility] - [address], [place], [place] [address] Not Available [address], [address], 03/07/2025 10:13:00 03/06/20 25 03/06/2025 TISSU E EXAM final diagnosis A. Large Intest ine, Left/D escend ing Colon, polyp x1: - Tubul ar adeno ma. Elect sohan gregory fatou d by Marjorie Velez MD on 2024 at 10:10 AM Not Available [address], [address], 03/07/2025 10:13:00 03/06/20 25 03/06/2025 TISSU E EXAM gross description A. Large Intest ine, Left/D escend ing Colon, polyp x1: Label ed desc colon polyp x 1 . Recei pantera in forma chiara, is an appro ximat milvia 0.6 cm, in great est diame ters, soft to rubbe ry, moreno, polyp oid tissu e, which is inked green at the base, and admix ed with fecal /food debri s. The speci men is wrapp ed in paper and submi tted in toto in one casse tte, one piece , multi ple level s. dvb/D G Not Available [address], [address], 03/07/2025 10:13:00 03/06/20 25 03/06/2025 TISSU E EXAM disclaimer Unles s other mendiola speci fied, all tissu e is 10% NB forma chiara fixed and paraf fin embed ded. Not Available [address], [address], 03/07/2025 10:13:00 10/20/20 25 10/20/2025 CBC WITH DIFFE RENTI AL/PL ATELE T WBC 6.6 x10e3 /uL 3.4-10 .8 normal Not Available [facility] [address] [facility], [place], [address], 10/21/2025 06:09:28 10/20/20 25 10/20/2025 CBC WITH DIFFE RENTI AL/PL ATELE T RBC 4.85 x10e6 /uL 4.14-5 .80 normal Not Available [facility] [address] [facility], [place], [address], 10/21/2025 06:09:28 10/20/20 25 10/20/2025 CBC WITH DIFFE RENTI AL/PL ATELE T hemoglobin 15.2 g/dL 13.0-1 7.7 normal Not Available [facility] [address] [facility], [place], [address], 10/21/2025 06:09:28 10/20/20 25 10/20/2025 CBC WITH DIFFE RENTI AL/PL ATELE T hematocrit 45.2 % 37.5-5 1.0 normal Not Available [facility] [address] [facility], [place], [address], 10/21/2025 06:09:28 10/20/2010/20/2025 CBC WITH DIFFE RENTI AL/PL ATELE T MCV 93 fL 79-97 normal Not Available [facility] [address] [facility], [place], [address], 10/21/2025 06:09:28 10/20/2010/20/2025 CBC WITH DIFFE RENTI AL/PL ATELE T MCH 31.3 pg 26.6-3 3.0 normal Not Available [facility] [address] [place], [address], 10/21/2025 06:09:28 10/20/20 25 10/20/2025 CBC WITH DIFFE RENTI AL/PL ATELE T MCHC 33.6 g/dL 31.5-3 5.7 normal Not Available [facility] [address] [facility], [place], [address], 10/21/2025 06:09:28 10/20/20 25 10/20/2025 CBC WITH DIFFE RENTI AL/PL ATELE T RDW 13.2 % 11.6-1 5.4 Not Available [facility] [address] [facility], [place], [address], 10/21/2025 06:09:28 10/20/20 25 10/20/2025 CBC WITH DIFFE RENTI AL/PL ATELE T platelets 111 x10e3 /uL 150-45 0 below low normal Not Available [facility] [address] [facility], [place], [address], 10/21/2025 06:09:28 10/20/20 25 10/20/2025 CBC WITH DIFFE RENTI AL/PL ATELE T neutrophils 68 % not estab. normal Not Available [facility] [address] [facility], [place], [address], 10/21/2025 06:09:28 10/20/20 25 10/20/2025 CBC WITH DIFFE RENTI AL/PL ATELE T lymphs 18 % not estab. normal Not Available [facility] [address] [facility], [place], [address], 10/21/2025 06:09:28 10/20/20 25 10/20/2025 CBC WITH DIFFE RENTI AL/PL ATELE T monocytes 11 % not estab. normal Not Available [facility] [address] [facility], [place], [address], 10/21/2025 06:09:28 10/20/20 25 10/20/2025 CBC WITH DIFFE RENTI AL/PL ATELE T eos 2 % not estab. normal Not Available [facility] [address] [facility], [place], [address], 10/21/2025 06:09:28 10/20/20 25 10/20/2025 CBC WITH DIFFE RENTI AL/PL ATELE T basos 1 % not estab. normal Not Available [facility] [address] [place], [address], 10/21/2025 06:09:28 10/20/20 25 10/20/2025 CBC WITH DIFFE RENTI AL/PL ATELE T immature cells GRINDER OPERATOR Not Available [facility] [address] [place], [address], 10/21/2025 06:09:28 10/20/2010/20/2025 CBC WITH DIFFE RENTI AL/PL ATELE T neutrophils (absolute) 4.5 x10e3 /uL 1.4-7. 0 normal Not Available [facility] [address] [place], [address], 10/21/2025 06:09:28 10/20/20 25 10/20/2025 CBC WITH DIFFE RENTI AL/PL ATELE T lymphs (absolute) 1.2 x10e3 /uL 0.7-3. 1 normal Not Available [facility] [address] [place], [address], 10/21/2025 06:09:28 10/20/20 25 10/20/2025 CBC WITH DIFFE RENTI AL/PL ATELE T monocytes(ab solute) 0.7 x10e3 /uL 0.1-0. 9 normal Not Available [facility] [address] [place], [address], 10/21/2025 06:09:28 10/20/20 25 10/20/2025 CBC WITH DIFFE RENTI AL/PL ATELE T eos (absolute) 0.1 x10e3 /uL 0.0-0. 4 normal Not Available [facility] [address] [place], [address], 10/21/2025 06:09:28 10/20/20 25 10/20/2025 CBC WITH DIFFE RENTI AL/PL ATELE T baso (absolute) 0.1 x10e3 /uL 0.0-0. 2 normal Not Available [facility] [address] [facility], [place], [address], 10/21/2025 06:09:28 10/20/20 25 10/20/2025 CBC WITH DIFFE RENTI AL/PL ATELE T immature granulocytes 0 % not estab. Not Available [facility] [address] [facility], [place], [address], 10/21/2025 06:09:28 10/20/20 25 10/20/2025 CBC WITH DIFFE RENTI AL/PL ATELE T immature grans (abs) 0.0 x10e3 /uL 0.0-0. 1 Not Available [facility] [address] [facility], [place], [address], 10/21/2025 06:09:28 10/20/2010/20/2025 CBC WITH DIFFE RENTI AL/PL ATELE T NRBC GRINDER OPERATOR Not Available [facility] [address] [facility], [place], [address], 10/21/2025 06:09:28 10/20/20 25 10/20/2025 CBC WITH DIFFE RENTI AL/PL ATELE T hematology comments: GRINDER OPERATOR Not Available [facility] [address] [facility], [place], [address], 10/21/2025 06:09:28 10/20/20 25 10/21/2025 LIPID PANEL cholesterol, total 163 mg/dL 100-19 9 normal Not Available [facility] [address] [facility], [place], [address], 10/21/2025 06:09:29 10/20/20 25 10/21/2025 LIPID PANEL triglyceride s 108 mg/dL 0-149 normal Not Available [facility] [address] [place], [address], 10/21/2025 06:09:29 10/20/20 25 10/21/2025 LIPID PANEL HDL cholesterol 42 mg/dL >39 normal Not Available [facility] [address] [place], [address], 10/21/2025 06:09:29 10/20/20 25 10/21/2025 LIPID PANEL VLDL cholesterol maddy 20 mg/dL 5-40 Not Available [facility] [address] [place], [address], 10/21/2025 06:09:29 10/20/20 25 10/21/2025 LIPID PANEL LDL chol calc ([facility]) 101 mg/dL 0-99 above high normal Not Available [facility] [address] [place], [address], 10/21/2025 06:09:29 10/20/2010/21/2025 LIPID PANEL LDL calc comment: GRINDER OPERATOR Not Available [facility] [address] [place], [address], 10/21/2025 06:09:29 10/20/2010/20/2025 PSA TOTAL (REFL EX TO FREE) reflex criteria Commen t The perce nt free PSA is perfo rmed on a refle x basis only when the total PSA is betwe en 4.0 and 10.0 ng/mL . Not Available [facility] [address] [place], [address], 10/21/2025 06:09:29 10/20/20 25 10/21/2025 PSA TOTAL (REFL EX TO FREE) prostate specific Ag 0.6 NG/mL 0.0-4. 0 normal Deanne ECLIA metho dolog y. Accor ding to [...] kits canno t be used inter veliz eably . Resul ts canno t be inter prete d as absol cocopah evide nce of the prese nce or absen ce of leslee calero se. Not Available [facility] [address] [place], [address], 10/21/2025 06:09:29 10/20/20 25 10/21/2025 MAGNE SIUM magnesium 2.1 mg/dL 1.6-2. 3 normal Not Available [facility] [address] [place], [address], 10/21/2025 06:09:30 10/20/20 25 10/20/2025 CMP14 (REFL EX HGB A1C) sodium 140 mmol/ L 134-14 4 normal Not Available [facility] [address] [place], [address], 10/23/2025 16:07:19 10/20/20 25 10/20/2025 CMP14 (REFL EX HGB A1C) potassium 4.9 mmol/ L 3.5-5. 2 normal Not Available [facility] [address] [place], [address], 10/23/2025 16:07:19 10/20/20 25 10/20/2025 CMP14 (REFL EX HGB A1C) chloride 102 mmol/ L 96-106 normal Not Available [facility] [address] [facility], [place], [address], 10/23/2025 16:07:19 10/20/20 25 10/21/2025 CMP14 (REFL EX HGB A1C) glucose 102 mg/dL 70-99 above high normal Not Available [facility] [address] [place], [address], 10/23/2025 16:07:19 10/20/20 25 10/21/2025 CMP14 (REFL EX HGB A1C) BUN 12 mg/dL 8-27 normal Not Available [facility] [address] [facility], [place], [address], 10/23/2025 16:07:19 10/20/20 25 10/21/2025 CMP14 (REFL EX HGB A1C) creatinine 0.78 mg/dL 0.76-1 .27 normal Not Available [facility] [address] [facility], [place], [address], 10/23/2025 16:07:19 10/20/20 25 10/21/2025 CMP14 (REFL EX HGB A1C) eGFR 101 mL/mi n/1.7 3 >59 normal Not Available [facility] [address] [place], [address], 10/23/2025 16:07:19 10/20/20 25 10/21/2025 CMP14 (REFL EX HGB A1C) BUN/creatini ne ratio 15 10-24 normal Not Available [facility] [address] [place], [address], 10/23/2025 16:07:19 10/20/20 25 10/21/2025 CMP14 (REFL EX HGB A1C) carbon dioxide, total 27 mmol/ L 20-29 normal Not Available [facility] [address] [place], [address], 10/23/2025 16:07:19 10/20/20 25 10/21/2025 CMP14 (REFL EX HGB A1C) calcium 9.5 mg/dL 8.6-10 .2 normal Not Available [facility] [address] [place], [address], 10/23/2025 16:07:19 10/20/20 25 10/21/2025 CMP14 (REFL EX HGB A1C) protein, total 6.9 g/dL 6.0-8. 5 normal Not Available [facility] [address] [place], [address], 10/23/2025 16:07:19 10/20/20 25 10/21/2025 CMP14 (REFL EX HGB A1C) albumin 4.7 g/dL 3.9-4. 9 normal Not Available [facility] [address] [place], [address], 10/23/2025 16:07:19 10/20/20 25 10/21/2025 CMP14 (REFL EX HGB A1C) globulin, total 2.2 g/dL 1.5-4. 5 Not Available [facility] [address] [place], [address], 10/23/2025 16:07:19 10/20/20 25 10/21/2025 CMP14 (REFL EX HGB A1C) bilirubin, total 0.5 mg/dL 0.0-1. 2 normal Not Available [facility] [address] [place], [address], 10/23/2025 16:07:19 10/20/20 25 10/21/2025 CMP14 (REFL EX HGB A1C) alkaline phosphatase 44 IU/L 47-123 below low normal Not Available [facility] [address] [place], [address], 10/23/2025 16:07:19 10/20/20 25 10/21/2025 CMP14 (REFL EX HGB A1C) AST (SGOT) 22 IU/L 0-40 normal Not Available [facility] [address] [facility], [place], [address], 10/23/2025 16:07:19 10/20/20 25 10/21/2025 CMP14 (REFL EX HGB A1C) ALT (SGPT) 18 IU/L 0-44 normal Not Available [facility] [address] [facility], [place], [address], 10/23/2025 16:07:19 10/20/20 25 10/23/2025 CMP14 (REFL EX HGB A1C) hemoglobin A1C 5.0 % 4.8-5. 6 normal Predi abete s: 5.7 - 6.4 Diabe giovanna: >6.4 Glyce letty contr ol for adult s with diabe giovanna: <7.0 Not Available [facility] [address] [facility], [place], [address], 10/23/2025 16:07:19 10/20/20 25 10/21/2025 VITAM IN B12 AND FOLAT E vitamin B12 435 pg/mL 232-12 45 normal Not Available [facility] [address] [place], [address], 10/23/2025 16:07:20 10/20/20 25 10/21/2025 VITAM IN B12 AND FOLAT E folate (folic acid), serum 6.5 NG/mL >3.0 normal A serum folat e radha ntrat ion of less than 3.1 ng/mL is consi dered to repre sent clini maddy defic iency . Not Available [facility] [address] [facility], [place], [address], 10/23/2025 16:07:20 10/20/20 25 10/21/2025 TSH RFX ON ABNOR MAL TO FREE T4 TSH 1.540 uIU/m L 0.450- 4.500 normal Not Available [facility] [address] [place] [place], [address], 10/23/2025 16:07:20 10/20/20 25 10/22/2025 ALK PHOS ISOEN ZYMES alkaline phosphatase 45 IU/L 47-123 below low normal Not Available [facility] [address] [place] [place], [address], 10/27/2025 22:06:00 10/20/20 25 10/27/2025 ALK PHOS ISOEN ZYMES liver fraction %: 61 % not estab. Not Available [facility] [address] [place], [address], 10/27/2025 22:06:00 10/20/20 25 10/27/2025 ALK PHOS ISOEN ZYMES liver fraction IU/L: 27 IU/L 21-86 Not Available [facility] [address] [place] [place], [address], 10/27/2025 22:06:00 10/20/20 25 10/27/2025 ALK PHOS ISOEN ZYMES bone fraction %: 38 % not estab. Not Available [facility] [address] [place], [address], 10/27/2025 22:06:00 10/20/20 25 10/27/2025 ALK PHOS ISOEN ZYMES bone fraction IU/L: 17 IU/L 16-52 Not Available [facility] [address] [place], [address], 10/27/2025 22:06:00 10/20/20 25 10/27/2025 ALK PHOS ISOEN ZYMES intestinal frac.%: 1 % not estab. Not Available [facility] [address] [place], [address], 10/27/2025 22:06:00 10/20/20 25 10/27/2025 ALK PHOS ISOEN ZYMES intestinalfr ac.IU/L: 0 IU/L 0-14 Not Available [facility] [address] [facility], [place], [address], 10/27/2025 22:06:00 10/20/20 25 10/24/2025 VITAM IN D, 25-HY DROXY vitamin D, 25-hydroxy 33.4 NG/mL 30.0-1 00.0 Vitam in D defic iency has been defin ed by the Insti tute of Medic ine and an Endoc rine Socie ty pract ice guide line as a level of serum 25-OH vitam in D less than 20 ng/mL (1,2) . The Endoc rine Socie ty went on to furth er defin e vitam in D insuf ficie ncy as a level betwe en 21 and 29 ng/mL (2). 1. IOM (Inst itute of Medic ine). 2010. Dieta ry refer ence intak es for calci um and D. Khai carpenter [place]: The [facility] Press . 2. Julio raphael [place], Camila alves [place], Pilar off-F sandra i [place], et al. Evalu ation , treat ment, and preve ntion of vitam in D defic iency : an Endoc rine Socie ty clini maddy pract ice guide line. JCEM. 2010; 96(7) :1911 -30. Not Available [facility] [address] [facility], [place], [address], 10/27/2025 22:06:01 10/20/20 25 10/21/2025 NAEEM EN AUTHO RIZAT ION written authorizatio n [facility] Naeem en Autho rizat ion Recei pantera. Autho rizat ion recei pantera from [facility] JULI PRADHAN for Link Reque st on 10-21 Logge d by Riddh i Chester Not Available [facility] [address] [facility], [place], [address], 10/27/2025 22:06:02 10/20/20 25 10/21/2025 TICK- BORNE DISEA SE AB PROFI LE result comments: Commen t Antib aneta titer s may be negat artie in the first 7-10 days of illne [...] is, respe ctive ly. Not Available [facility] [address] [facility], [place], [address], 10/30/2025 14:06:46 10/20/20 25 10/24/2025 TICK- BORNE DISEA SE AB PROFI LE lyme total antibody susie Negati ve negati ve Lyme antib odies not detec jayson. Refle x testi ng is not indic ated. No labor atory evide nce of infec tion with B. burgd orfer i (Lyme disea se). Negat artie resul ts may occur in patie nts recen tly infec jayson (less than or equal to 14 days) with B. burgd orfer i. If recen t infec tion is suspe cted, repea t testi ng on a new sampl e colle cted in 7 to 14 days is recom ana lilia d. Not Available [facility] [address] [facility], [place], [address], 10/30/2025 14:06:46 10/20/20 25 10/29/2025 TICK- BORNE DISEA SE AB PROFI LE E. chaffeensis IgG Negati ve neg:<1 :64 Not Available [facility] ([facility]) [address] [facility], [place], [address], 10/30/2025 14:06:46 10/20/20 25 10/29/2025 TICK- BORNE DISEA SE AB PROFI LE A. phagocytophi lum IgG Negati ve neg:<1 :64 Not Available [facility] [address] [facility], [place], [address], 10/30/2025 14:06:46 10/20/20 25 10/30/2025 TICK- BORNE DISEA SE AB PROFI LE babesia microti IgG <1:10 neg:<1 :10 Not Available [facility] [address] [facility], [place], [address], 10/30/2025 14:06:46 10/18/20 24 10/18/2024 XR, ribs, unila teral , w/ PA chest No observ ation record ed. [email or web address] Not Available 2023 09:19:19 10/18/20 24 10/18/2024 XR, ribs, unila teral , w/ PA chest Ribs W/ PA Chest Right 6 views Reason : Anteri or chest pain after fall severa l days ago COMPAR GLADIS: 2012 FINDIN GS: LINES AND TUBES: None. LUNGS AND PLEURA : There is a small focus of asymme tric ill-de fined opacit y in the left lower latera l lung base near the anteri or border of left 5th rib. Otherw ise clear. No effusi on or pneumo thorax . HEART, MEDIAS TINUM AND BARBARA: Normal . BONES: No fractu res or bone lesion s. SOFT TISSUE S: Normal . IMPRES WILFREDO: 1. Small focus of opacit y in the left lower latera l lung might be atelec tasis. Consid er follow -up two-vi ew chest x-ray in 4-6 weeks to docume nt resolu tion. 2. No fractu res or other acute proces s. An action able messag e (Theodore w) has been commun icated via the [employer] system on 2023 2:41 PM, Messag e ID [id number]. WSN: [id number] Orderximena ng Physic yefri: Rinku Pradhan Dictat ed By: Elías Cueva MD Dictat ed Date/T erum: 2:41 pm Review ed By: Idania rivera MD, Elías chung Signed By: Idania rivera MD, Elías chung Signed Date/T erum: 2:41 pm Transc ribed By: AMANDEEP Transc ribed Date/T erum: 2:38 pm Patien t Class: Outpat ient [facility] (Outpt Imaging) [address] [place], [address], 10/18/2024 18:11:14 11/28/19 25 11/28/2024 XR, chest , 2 view Chest 2 Views Fronta l and Lat Reason : atelec tasis COMPAR GLADIS: 2023. FINDIN GS: LINES AND TUBES: None. LUNGS AND PLEURA : Clear lungs. Normal pulmon juliann vascul arity. No pleura l effusi on. No pneumo thorax . HEART, MEDIAS TINUM AND BARBARA: Heart is normal in size. Aorta is mildly calcif ied. BONES AND SOFT TISSUE S: No acute abnorm ality. Cervic al spine hardwa re IMPRES WILFREDO: No acute abnorm ality. WSN: [id number] [employer]ena ng Physic yefri: Rinku Pradhan Dictat ed By: Sofia Fulton MD Dictat ed Date/T erum: 1:46 pm Review ed By: Sofia Fulton MD Signed By: Sofia Fulton MD Signed Date/T erum: 1:46 pm Transc ribed By: AMANDEEP Transc ribed Date/T erum: 1:45 pm Patien t Class: Outpat ient [facility] (Outpt Imaging) [address] [place], [address], 11/28/2024 15:03:58 11/28/19 25 11/28/2024 XR, chest , 2 view No observ ation record ed. [email or web address] Not Available 11/29 08:47:25 03/06/20 25 rosalind santos strod uoden oscop y with biops y (PROC ) No observ ation record ed. [email or web address] [facility] Gastroenterol ogy Scheduling [address] [place] [address], [place], [address], 03/13/2025 10:42:21 03/06/20 25 colon oscop y No observ ation record ed. [email or web address] [facility] [address], [place], [address], 03/07/2025 15:52:56 10/21/20 25 10/20/2025 XR, knee, 3 view No observ ation record ed. [facility] [address], [place], [address], 10/21/2025 10:18:50 10/21/20 25 10/20/2025 XR, knee, [...] Negati ve study of both knees. WSN: [id number] Orderi ng Physic yefri: Rinku Pradhan Dictat ed By: Isabelle Multani MD Dictat ed Date/T erum: 8:26 am Review ed By: Isabelle Multani MD Signed By: Isabelle Multani MD Signed Date/T erum: 8:26 am Transc ribed By: CSB Transc ribed Date/T erum: 8:23 am Patien t [facility] [address], [place], [address], 10/21/2025 08:42:06 Result Notes Documentation Provider Name and Address Organization Details Recorded Time Xr, Ribs, Unilateral, W/ Pa Chest : Ribs W/ PA Chest Right 6 views Reason: Anterior chest pain after fall several days ago COMPARISON: 10/10/2013 FINDINGS: LINES AND TUBES: None. LUNGS AND PLEURA: There is a small focus of asymmetric ill-defined opacity in the left lower lateral lung base near the anterior border of left 5th rib. Otherwise clear. No effusion or pneumothorax. HEART, MEDIASTINUM AND BARBARA: Normal. BONES: No fractures or bone lesions. SOFT TISSUES: Normal. IMPRESSION: 1. Small focus of opacity in the left lower lateral lung might be atelectasis. Consider follow-up two-view chest x-ray in 4-6 weeks to document resolution. 2. No fractures or other acute process. An actionable message (Yellow) has been communicated via the [employer] system on 10/18/2024 2:41 PM, Message ID [id number]. WSN: [id number] Ordering Physician: Wade Pradhan Dictated By: Cullen Garner MD Dictated Date/Time: 10/18/24 2:41 pm Reviewed By: Cullen Garner MD Signed By: Cullen Garner MD Signed Date/Time: 10/18/24 2:41 pm Transcribed By: AMANDEEP Transcribed Date/Time: 10/18/24 2:38 pm Patient Class: Outpatient Wade Pradhan MD [address] [facility] [address], [place], [address], [facility] 10/18/2024 17:10:14 Xr, Chest, 2 View : Chest 2 Views Frontal and Lat Reason: atelectasis COMPARISON: 10/18/2024. FINDINGS: LINES AND TUBES: None. LUNGS AND PLEURA: Clear lungs. Normal pulmonary vascularity. No pleural effusion. No pneumothorax. HEART, MEDIASTINUM AND BARBARA: Heart is normal in size. Aorta is mildly calcified. BONES AND SOFT TISSUES: No acute abnormality. Cervical spine hardware IMPRESSION: No acute abnormality. WSN: [id number] Ordering Physician: Wade Pradhan Dictated By: Sofia Fulton MD Dictated Date/Time: 11/28/24 1:46 pm Reviewed By: Sofia Fulton MD Signed By: Sofia Fulton MD Signed Date/Time: 11/28/24 1:46 pm Transcribed By: AMANDEEP Transcribed Date/Time: 11/28/24 1:45 pm Patient Class: Outpatient Wade Pradhan MD [address], [address], [facility] 11/28/2024 14:22:28 Xr, Knee, Weightbearing : Knees Bilat Standing, 2 views of each knee Reason: bilat knee pain Pain in both knees for 6 months with no relief COMPARISON: Left knee on 08/12/2020 FINDINGS: No bone lesions or fractures. No arthritic changes. No osteochondral defects or intra-articular loose bodies. No evidence of joint effusion. Mild atherosclerotic changes left popliteal artery. IMPRESSION: Negative study of both knees. WSN: [id number] Ordering Physician: Wade Pradhan Dictated By: Gideon Salas MD Dictated Date/Time: 10/21/25 8:26 am Reviewed By: Gideon Salas MD Signed By: Gideon Salas MD Signed Date/Time: 10/21/25 8:26 am Transcribed By: AMANDEEP Transcribed Date/Time: 10/21/25 8:23 am Patient Class: Outpatient Wade Pradhan MD [address], [address], [facility] 10/21/2025 08:42:06 Problems Name Problem SNOMED Code Status Onset Date Resolution Date Notes Provider Name and Address Organization Details Recorded Time Body mass index 30+ - obesity 485566595 Active Not Available [facility] 3 08:40:44 Moderate persiste nt asthma 637121141 Active Not Available [facility] 3 08:40:44 Low back pain 799331258 Completed 10/04/2023 Wade Pradhan MD [address] [place], [address] , [facility] 3 13:20:48 Pain in thumb 871729778 Completed 05/17/2017 SKYLER Espinoza, [facility] 7 13:49:25 Dizzines s 283865831 Completed 05/17/2017 SKYLER Espinoza, [facility] 7 13:49:27 Anxiety 58399352 Active Not Available [facility] 3 08:40:45 Headache 58988691 Completed 10/04/2023 Wade Pradhan MD [address], [place], [address] , [facility] 3 13:20:37 Peroneal tendinit is 90569786 Completed 11/02/2017 Amanuel Kinsey MD [address], [place], [address] , [facility] 7 09:54:26 Seasonal allergic rhinitis 768314104 Active SKYLER Espinoza, [facility] 5 12:48:27 Adult health examinat ion Completed 201206/30/2014 RECORDED 02/13/20 13 4:03PM BY ANN BROOKE MA, ANNOTATI ON/ADDEN DUM SKYLER Espinoza, [facility] 5 11:04:30 Malaise and fatigue 881155407 Completed 201206/30/2014 RECORDED 02/13/20 13 4:03PM BY ANN BROOKE MA, ANNOTATI ON/ADDEN DUM SKYLER Espinoza, [facility] 5 11:04:30 Adult health examinat ion Completed 201206/03/2014 RECORDED 02/13/20 13 4:03PM BY ANN BROOKE MA, ANNOTATI ON/ADDEN DUM SKYLER Espinoza, [facility] 5 11:04:30 Malaise and fatigue 381184686 Completed 201206/03/2014 RECORDED 02/13/20 13 4:03PM BY ANN BROOKE MA, ANNOTATI ON/ADDEN DUM SKYLER Espinoza, [facility] 5 11:04:30 Administ ration of diphther ia and tetanus vaccine Completed 201206/30/2014 RECORDED 05/22/20 13 9:37AM BY ANN BROOKE MA, KLEVER ON/ADDEN DUM SKYLER Espinoza, [facility] 5 11:04:30 Administ ration of diphther ia and tetanus vaccine Completed 201206/03/2014 RECORDED 05/22/20 13 9:37AM BY ANN BROOKE MA, KLEVER ON/ADDEN DUM SKYLER Espinoza, [facility] 5 11:04:30 Closed fracture of distal phalanx of finger 66717160 Completed 201206/30/2014 STORY: RIGHT LONG FINGER; RECORDED 09/04/20 13 10:35AM BY YAKOV MILLARD MA, ANNOTJESSICA ON/ADDEN DUM SKYLER Espinoza, [facility] 5 11:04:30 Follow-u p encounte r Completed 201206/30/2014 RECORDED 09/04/20 13 10:35AM BY YAKOV MILLARD MA, ANNOTJESSICA ON/ADDEN DUM SKYLER Espinoza, [facility] 5 11:04:30 Knee pain Completed 201206/30/2014 RECORDED 09/04/20 13 10:35AM BY YAKOV MILLARD MA, ANNOTJESSICA ON/ADDEN DUM SKYLER Espinoza, [facility] 5 11:04:30 Closed fracture of distal phalanx of finger 31554477 Completed 201206/03/2014 STORY: RIGHT LONG FINGER; RECORDED 09/04/20 13 10:35AM BY YAKOV MILLARD MA, ANNOTATI ON/ADDEN DUM SKYLER Espinoza, [facility] 5 11:04:30 Follow-u p encounte r Completed 201206/03/2014 RECORDED 09/04/20 13 10:35AM BY YAKOV MILLARD MA, ANNOTATI ON/ADDEN DUM SKYLER Espinoza, [facility] 5 11:04:30 Knee pain Completed 201206/03/2014 RECORDED 09/04/20 13 10:35AM BY YAKOV MILLARD MA, ANNOTJESSICA ON/ADDEN DUM SKYLER Espinoza, [facility] 5 11:04:30 Acute sinusiti s 82914209 Completed 201206/30/2014 IMPRESSI ON: STILL HAS 2 MORE DAYS Z-BHAVANI ACTIVE IN HIM. DO SINUS RINSE AND FLONASE. IF NO IMPROVEM ENT BY MONDAY CALL AND WE CAN PRESCRIB E NEW ABX; RECORDED 09/19/20 13 3:46PM BY ANN BROOKE MA, KLEVER ON/ADDEN DUM SKYLER Espinoza, [facility] 5 11:04:30 Acute sinusiti s 44983405 Completed 201206/03/2014 IMPRESSI ON: STILL HAS 2 MORE DAYS Z-BHAVANI ACTIVE IN HIM. DO SINUS RINSE AND FLONASE. IF NO IMPROVEM ENT BY MONDAY CALL AND WE CAN PRESCRIB E NEW ABX; RECORDED 09/19/20 13 3:46PM BY ANN BROOKE MA, ANNOTATI ON/ADDEN DUM SKYLER Espinoza, [facility] 5 11:04:30 Influenz a vaccine needed 35853540396 06 Completed 201206/30/2014 RECORDED 10/10/20 13 8:19AM BY KLEVER MAY ON/ADDEN DUM Ann SKYLER Escalante, [facility] 5 11:04:30 Influenz a vaccine needed 09278739710 06 Completed 201206/03/2014 RECORDED 10/10/20 13 8:19AM BY KLEVER MAY ON/ADDEN DUM Ann SKYLER Escalante, [facility] 5 11:04:30 Essentia l hyperten wilfredo 11526332 Completed 201206/03/2014 RECORDED 10/10/20 13 8:19AM BY KLEVER MAY ON/ADDEN DUM Ann SKYLER Escalante, [facility] 7 13:49:49 Hypersom kimberley 81045856 Completed 201206/30/2014 RECORDED 11/08/20 13 8:37AM BY ANN BROOKE MA, ANNOTJESSICA ON/ADDEN DUM SKYLER Espinoza, [facility] 5 11:04:30 Wheezing 36023048 Completed 201206/30/2014 RECORDED 11/08/20 13 8:37AM BY ANN BROOKE MA, ANNOTJESSICA ON/ADDEN DUM SKYLER Espinoza, [facility] 5 11:04:30 Hypersom kimberley 93825807 Completed 201206/03/2014 RECORDED 11/08/20 13 8:37AM BY ANN BROOKE MA, ANNOTJESSICA ON/ADDEN DUM SKYLER Espinoza, [facility] 5 11:04:30 Wheezing 80431169 Completed 201206/03/2014 RECORDED 11/08/20 13 8:37AM BY ANN BROOKE MA, ANNOTATI ON/ADDEN DUM SKYLER Espinoza, [facility] 5 11:04:30 Acute asthma 051267071 Completed 201305/17/2017 SKYLER Espinoza, [facility] 7 13:49:22 Cervical disc disorder 374340335 Completed 201310/04/2023 Wade Pradhan MD [address], [place], [address] , [facility] 3 13:20:07 Family history of malignan t neoplasm of gastroin testinal tract 161963709 Active 2013 colon cancer Not Available [facility] 3 08:40:45 Hyperlip idemia 65676243 Active 2013 Not Available [facility] 3 08:40:45 Essentia l hyperten wilfredo 58845727 Active 2013 Not Available [facility] 3 08:40:45 Insomnia 406644816 Completed 201310/04/2023 Wade Pradhan MD [address], [place], [address] , [facility] 3 13:20:43 Patient status finding 536707279 Completed 201306/12/2014 RECORDED 12/06/19 14 10:08AM BY LYLE MAS I, OFFICE VISIT SKYLER Espinoza, [facility] 5 11:04:30 Obesity 163840902 Active 2013 Not Available [facility] 3 08:40:44 Acute upper respirat ory infectio n 27889702 Completed 201305/17/2017 SKYLER Espinoza, [facility] 7 13:49:39 Renewal of prescrip tion Completed 201305/17/2017 SKYLER Espinoza, [facility] 7 13:49:12 Chronic asthmati c bronchit is 746183184 Active 2013 Not Available [facility] 3 08:40:44 Neck pain 15978456 Completed 201310/18/2024 Wade Pradhan MD [address], [place], [address] , [facility] 4 13:04:59 Acquired thromboc ytopenia 87509481 Active 2019 Not Available [facility] 3 08:40:45 Hyponatr emia 12686606 Completed 201911/13/2022 Wade Pradhan MD [address], [place], [address] , [facility] 2 13:39:36 Severe major depressi on, single episode, without psychoti c features 78533502 Completed 201910/04/2023 Wade Pradhan MD [address], [place], [address] , [facility] 3 13:21:21 Alcohol dependen ce 48661262 Completed 201910/04/2023 Wade Pradhan MD [address] [facility] [address], [place], [address] , [facility] 3 13:22:09 Degenera tion of lumbar interver tebral disc 74605256 Active 2019 Not Available [facility] 3 08:40:44 Esophage al varices 71265427 Active 2020 Seen on EGD 06/2021. Justin chung for GI Not Available [facility] 3 08:40:44 Heredita ry essentia l tremor 460167599 Active 2021 dx by neuro 01/12/22, lab imaging neg Not Available [facility] 3 08:40:45 Obstruct artie sleep apnea of adult 47959207461 03 Active 2021 Not Available [facility] 3 08:40:44 Impaired fasting glycemia 313949588 Completed 202110/16/2024 Wade Pradhan MD [address] [facility] [address], [place], [address] , [facility] 4 12:52:14 Obsessiv e-compul sive disorder 526453047 Active 2022 Not Available [facility] 3 08:40:44 Major depressi on in remissio n 24612107 Active 2022 Not Available [facility] 3 08:40:44 History of alcoholi sm 569226978 Active 2022 sober 2yrs, Not Available [facility] 3 08:40:44 Ex-smoke r 5633632 Active 2023 Wade Pradhan MD [address] [facility] [address], [place], [address] , [facility] 4 13:05:56 Cirrhosi s of liver 98441085 Active 2024 Wade Pradhan MD [address] [facility] [address], [place], [address] , [facility] 5 13:00:03 Problem Notes None recorded. Procedures Surgical History Date Name Laterality Status Provider Name and Address Organization Details Recorded Time 03/06 Colonoscopy completed Alida Hogan [facility] 5 15:52:55 03/06 esophagogastroduodenoscopy completed Simeon Villavicencio [facility] 5 10:42:36 10/03 Unlisted procedure spine completed Hedy Montejo [facility] 7 14:29:27 09/29 Neck spine disk surgery completed Ann giron [place] [facility] 7 13:51:24 11/20 Repair rotator cuff acute completed Ann French tos, [place] [facility] 4 09:57:21 11/20 excision of medial epicondyle of humerus completed Ann giron MA [facility] 1 15:42:58 11/20 Arthrd ant karlene/xoral c1-c2 completed Amanuel Kinsey MD [address] [facility] [address], [place], [address], [facility] 6 15:15:55 11/20 Osteot dsc ant 1vrt sgm lmbr completed Ann Ingram-Nakul giron [facility] 4 09:57:21 11/20 Osteot dsc ant 1vrt sgm lmbr completed Ann giron [facility] 4 09:57:21 11/20 Unlisted px accessory sinus completed Ann giron [facility] 4 09:57:21 Imaging Results None recorded. Procedure Notes None recorded. Medical Equipment None Reported. Allergies Allergen ID Allergen Name Allergen Category Reaction Reaction Severity Criticality Documentation Date Start Date Code Code System Note Provider Name and Address Organization Details Recorded Time 06507 morphine medicatio n Not available Not available Not available 05/01/2020 7052 RxNorm SKYLER Gibson [facility] 0 12:55:45 4976 morphine sulfate medicatio n itching rash Not available Not available Not available 06/03/20142013 92928 RxNorm SKYLER Gibson [facility] 7 13:53:49 Medications Name Sig Start Date Stop Date Status Note LastModified by Organization Details LastModified Time simvastat in 40 mg tabs 08/03 completed Not Available Not Available Not Available sertralin e hcl 100 mg tabs 1 tablet po daily 08/03 completed Not Available Not Available Not Available meloxicam 7.5 mg tabs 08/03 completed Not Available Not Available Not Available quinapril hcl 20 mg tabs 08/03 completed [...] 10/25 completed RECORDED 10/25/20 13 10:03AM BY LAKEISHA MENJIVAR, ANNOTATI ON/NI CRUZ; Not Available Not Available Not [...] Available Dymista 137 mcg-50 mcg/spray nasal spray [place] 1 spray every day by nasal route [...] x 4)/0.5 mL IM syringe PHARMACY ADMINIST ERED 01/15 completed Not Available Not Available Not Available sertralin e 200 mg capsule Take 1 capsule every day by oral route for 60 days. 02/10 completed Not Available Not Available Not Available Vitals Date Recorded Systolic And Diastolic Provider Name and Address Organization Details Last Updated DateTime 04/16/2025 128/84 mm[Hg] Wade Pradhan MD [address] [address], [place], [address], [facility] 04/16/2025 09:45:39 Date Recorded Body height Body mass index (BMI) Body weight Heart rate Oxygen saturation Body temperature Systolic And Diastolic Provider Name and Address Organization Details Last Updated DateTime 5 180.34 cm 30.5 kg/m2 40515.7 3 g 62 /min 98 % 98.2 [degF] 137/81 mm[Hg] Ann hawkins MA [facility] 09:37:35 Date Recorded Body height Provider Name an d Address Organization Details Last Updated DateTime 04/29/2024 180.34 cm Ann Mc MA [facility] 04/29/2024 15:52:33 Date Recorded Body height Body mass index (BMI) Body weight Heart rate Oxygen saturation Body temperature Systolic And Diastolic Provider Name and Address Organization Details Last Updated DateTime 3 180.34 cm 31.2 kg/m2 301906. 69 g 60 /min 98 % 98.3 [degF] 107/64 mm[Hg] Ann hawkins MA [facility] 3 13:08:26 Date Recorded Body height Body mass index (BMI) Body weight Heart rate Oxygen saturation Body temperature Systolic And Diastolic Provider Name and Address Organization Details Last Updated DateTime 4 180.34 cm 30.1 kg/m2 97419.9 5 g 91 /min 97 % 98.4 [degF] 114/73 mm[Hg] Joceline Raza MA [facility] 4 12:56:04 Date Recorded Body height Body mass index (BMI) Body weight Heart rate Oxygen saturation Body temperature Systolic And Diastolic Provider Name and Address Organization Details Last Updated DateTime 5 180.34 cm 30 kg/m2 07218.3 6 g 72 /min 98 % 97.3 [degF] 121/81 mm[Hg] Carissa Engle MA [facility] 5 09:05:10 Social History Question Answer Notes LastModified by Organizat ion Details LastModified Time Tobacco Smoking Status Former Smoker SKYLER Rob [facility] 09/21/2021 15:40:11 Do You Have An Advance Directive? No Still thinking About It [email or web address] Information not available 10/03/2022 Is Blood Transfusion [...] 12/03/2015 When Did You Quit Smoking? 11-15yearss [email or web address] heathtte Information not available 09/21/2021 Live Alone Or With Others? With Others Roommates [email or web address] Information not available 10/03/2022 Do You Take [...] Of Your Most Recent Tobacco Screening? 10/20/2025 [email or web address] Information not available 10/20/2025 How Many Children Do You Have? 0 Information not available 09/21/2021 What Is Your Current Pack Years? 10packyears [email or web address] Information not available 10/03/2022 Do You Use Protection During Sex? No Information not available 12/03/2015 Do You Use Your Seat Belt Or Car Seat Routinely? Yes Information not available 09/21/2021 Seat Belts Used Routinely Yes [email or web address] Information not available 10/03/2022 Are You Sexually Active? No Information not available 09/21/2021 Smoke Alarm In Home Yes [email or web address] Information not available 10/03/2022 Do You Have [...] use any illicit or recreational drugs? No [email or web address] Information not available 10/03/2022 Do you or have you ever used any other forms of tobacco or nicotine? No [email or web address] Information not available 10/03/2022 What is your level of alcohol consumption? None Information not available 09/21/2021 Do you or have you ever used smokeless tobacco? Never used smokeless tobacco Information not available 06/11/2020 Are you currently employed? No Information not available 10/04/2023 Are you able to walk independently without assistance or assistive devices? YESWOREST [email or web address] Information not available 10/03/2022 Are you able to care for yourself independently? 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 Never used electronic cigarettes [email or web address] Information not available 10/03/2022 What is your exercise level? None Information not available 02/08/2023 Mental Status None recorded. Family History Relationship Description Onset Age of this Age Resolved Age Notes LastModified by Organization Details LastModified Time Father Diabetes mellitus [email or web address] Not available 2014 10:51:16 Father Malignant neoplasm of colon [email or web address] Not available 2014 10:51:16 Father Hyperlipidem ia [email or web address] Not available 10/03 09:15:42 Father Heart disease [email or web address] Not available 2014 10:51:16 Father Asthma [email or web address] s Not available 09/21/2021 15:39:57 Father Obesity bsolivanmatto s Not available 09/21/2021 15:39:57 Father Essential hypertension [email or web address] Not available 09:15:43 Mother Hyperlipidem ia [email or web address] Not available 10/03 09:15:43 Mother Alzheimer's disease [email or web address] s Not available 09/21/2021 15:39:57 Mother Dementia bsolivanmatto s Not available 09/21/2021 15:39:57 Brother Diabetes mellitus [email or web address] Not available 10/03 09:15:43 Brother Hyperlipidem ia [email or web address] Not available 10/03 09:15:43 Sister Hyperlipidem ia [email or web address] Not available 10/03 09:15:43 Maternal Aunt Malignant neoplasm of colon [email or web address] Not available 10/03 09:15:43 Maternal Uncle Malignant neoplasm of colon abigby Not available 2014 10:51:16 Maternal Uncle Malignant neoplasm of lung abigby Not available 2014 10:51:16 Maternal Grandfather Malignant neoplasm of lung [email or web address] Not available 10/03 09:15:43 Paternal Grandmother Heart disease [email or web address] Not available 10/03 09:15:43 Maternal Grandmother Obesity bsolivanmatto s Not available 09/21/2021 15:39:57 Paternal Grandfather Harmful pattern of use of alcohol [email or web address] s Not available 09/21/2021 15:39:57 Unspecified Relation Substance abuse bsolivanmatto s Not available 09/21/2021 15:39:57 Medical History Condition Response Gout N Other N Kidney Stones N Blood Diseases N Hyperthyroidism N Breast Cancer N COPD N Depression Y Lung Disease N Hypothyroidism N Defects or Inherited Disease N Anesthesia Complications N Headaches/Migraines N Anxiety Disorder Y Varicose Veins N Obesity Y Vision or Eye Problems N Arthritis N Head Injury/Concussion N Polyps Y Infertility N Congenital Anomalies N Acid Reflux (GERD) N Cancer N Stroke N ADHD N Endometriosis N High Cholesterol Y Liver Disease N Fibromyalgia N Kidney Disease N Heart Problems N Ear or Hearing Problems N Hospitalizations Y Thyroid Problems N GI Problems N Acne N Eating Disorder N Skin Problems N Anemia N Constipation N Bladder Problems N Mental Illness N Diabetes N Ovarian Cancer N Blood Transfusions N Seizures/Epilepsy N Tuberculosis N AIDS/HIV N Congestive Heart Failure (CHF) N Eczema N Abuse/Domestic Violence N Diverticulitis N Asthma Y Allergies Y Reflux/GERD N Hepatitis N Pulmonary Embolism N Hypertension Y Chicken Pox N Autism Spectrum Disorder (ASD) N Osteoporosis N Immunizations Vaccine Type Date Status Note Provider Nam e and Address Organization Details Recorded Time Influenza, split virus, trivalent, PF 5 completed SKYLER Rob [facility] 10/20/2025 09:17:13 influenza, unspecified formulation 6 completed Luz wilburn [facility] 10/23/2023 09:08:15 Influenza, split virus, trivalent, PF 7 completed Luz wilburn [facility] 10/23/2023 09:08:15 COVID-19, mRNA, LNP-S, PF, 30 mcg/0.3 mL dose 1 completed Luz wilburn [facility] 10/23/2023 09:08:15 COVID-19, mRNA, LNP-S, PF, 30 mcg/0.3 mL dose 1 completed Luz wilburn [facility] 10/23/2023 09:08:15 COVID-19, mRNA, LNP-S, PF, 30 mcg/0.3 mL dose 1 completed Luz Anaya null, [facility] 10/23/2023 09:08:15 Influenza, split virus, quadrivalent, PF 0 completed Luz Anaya null, [facility] 10/23/2023 09:08:15 COVID-19, mRNA, LNP-S, PF, 30 mcg/0.3 mL dose 1 completed Luz Anaya null, [facility] 10/23/2023 09:08:15 COVID-19, mRNA, LNP-S, PF, 30 mcg/0.3 mL dose 1 completed Luz Anaya null, [facility] 10/23/2023 09:08:15 COVID-19, mRNA, LNP-S, PF, 30 mcg/0.3 mL dose, casey-sucrose 2 completed Luz Anaya null, [facility] 10/23/2023 09:08:15 zoster recombinant 3 completed Luz Anaya null, [facility] 10/23/2023 09:08:15 Tdap 3 completed Luz Anaya null, [facility] 10/23/2023 09:08:15 zoster recombinant 3 completed Ann Mc MA null, [facility] 04/29/2024 15:52:38 Pneumococcal conjugate PCV20, polysaccharide [id number] conjugate, adjuvant, PF 3 completed Luz Anaya null, [facility] 10/23/2023 09:08:15 COVID-19, mRNA, LNP-S, PF, 50 mcg/0.5 mL 3 completed Luz Anaya null, [facility] 10/23/2023 09:08:15 Tdap 3 completed Luz Anaya null, [facility] 10/23/2023 09:08:15 influenza, seasonal, intradermal, preservative free 3 completed Luz wilburn [facility] 10/23/2023 09:08:15 Influenza, split virus, trivalent, PF 4 completed Not Available [facility] 12/07/2019 02:21:57 Influenza, split virus, quadrivalent, PF 1 completed [place] Rob, [facility] 09/21/2021 16:34:46 Influenza, split virus, quadrivalent, PF 2 completed [place] Rob, [facility] 10/03/2022 10:49:29 Influenza, split virus, quadrivalent, PF 3 completed Wade Pradhan MD [address], [address], [facility] 10/04/2023 13:22:57 Influenza, split virus, trivalent, PF 4 completed Wade Pradhan MD [address], [address], [facility] 10/18/2024 13:24:51 Past Encounters Encounter ID Performer Location Encounter Start Date Encounter Closed Date Diagnosis/Indication Diagnosis SNOMED-CT Code Diagnosis ICD10 Code Diagnosis IMO Codes Diagnosis Note [id number] Amanuel Kinsey MD Main Office [address] [address] 06/12/2014 10:27:20 06/12/2014 11:00:25 Essential hypertension 72643918 Adult [facility] th examination 930717130 Body mass index 30+ - obesity 569305701 Hyperlipidemia 84973127 Moderate p ersistent asthma 474421783 [id number] auto[facility]Comm erce [address] [facility] [place] [address] 11/16/2012 00:00:00 [id number] autoEComm erce [address] [facility] [place] [address] 02/12/2013 00:00:00 [id number] autoEComm erce [address] [facility] [place], [place] [address] 05/22/2013 00:00:00 [id number] [address]Comm erce [address] [place], [place] [address] 07/19/2013 00:00:00 [id number] autoEComm erce [address] [facility] [place], [place] [address] 09/04/2013 00:00:00 [id number] autoEComm erce [address] [facility] [place], [place] [address] 09/19/2013 00:00:00 [id number] autoEComm erce [address] [facility] [place], [place] [address] 10/10/2013 00:00:00 [id number] autoEComm erce [address] [facility] [place], [place] [address] 11/08/2013 00:00:00 [id number] autoEComm erce [address] [facility] [place], [place] [address] 12/06/2013 00:00:00 [id number] Freya Lopez [facility] Main Office [address] [facility] [address] [place], [place] [address] 09/22/2014 10:26:05 09/22/2014 10:54:19 Needs influenza immunization 504307223 Low back pain 373426738 Pain in thumb 290422033 wi ll get xray [id number] BUD Arnett Main Office [address] [facility] [address] [place], [place] [address] 02/09/2015 10:15:18 02/09/2015 10:51:48 Acute asthma 978418500 gave him choice of increasing advair or doing prednisone . he wants prednisone Acute uppe r respiratory infection 55913551 viral. call if worsening [id number] Amanuel Kinsey MD Main Office [address] [facility] [address] [place] [address] 04/01/2015 13:47:39 04/01/2015 15:00:26 Dizziness 923411387 Anxiety 81544892 [id number] Amanuel Kinsey MD Main Office [address] [address] [place] [address] 05/18/2015 08:42:54 05/18/2015 09:24:38 Anxiety 32160202 Moderate p ersistent asthma 975555625 Screening for malignant neoplasm of colon 969837836 Body mass index 30+ - obesity 844947806 [id number] Amanuel Kinsey MD Main Office [address] [address] [place] [address] 06/29/2015 10:43:05 06/29/2015 11:35:00 Anxiety 03677962 Moderate p ersistent asthma 854853151 Essential hypertension 36313392 [id number] Amanuel Kinsey MD Main Office [address] [address] [place] [address] 07/23/2015 09:55:59 07/23/2015 11:41:42 Peroneal tendinitis 35485053 2 days severe pain left foot [id number] Amanuel Kinsey MD Main Office [address] [address] [place] [address] 12/03/2015 11:11:49 12/03/2015 12:23:50 Cervical disc disorder 140618154 M50.90 [id number] Erica Zelaya PA-C Main Office [address] [address] [place] [address] 08/03/2016 10:48:28 08/03/2016 11:33:34 Acute sinusitis 32535500 J01.90 Moderate p ersistent asthma 345090556 J45.40 Continue Prednisone taper as directed as well as all inhalers. F/u with pulmonary. [id number] Amanuel Kinsey MD Main Office [address] [address] [place] [address] 02/14/2017 09:30:50 02/15/2017 12:48:11 [id number] Amanuel Kinsey MD Main Office [address] [address] [place] [address] 05/12/2017 14:27:35 05/12/2017 16:17:37 [id number] Amanuel Kinsey MD Main Office [address] [address] [place] [address] 05/17/2017 13:40:13 05/17/2017 14:33:27 Lumbar radiculopathy 079198608 M54.16 [id number] Bean Zelaya PA-C Main Office [address] [facility] [address] [place] [address] 10/23/2017 10:40:24 10/23/2017 12:10:53 Degeneration of lumbar intervertebral disc 54272058 M51.36 s/p surgery c Dr. Ham, next f/u is 12.8.17, cont neurontin as dir -- will attempt to get updated d/c summaries from and Tom Alcohol dependence 00158 003 F10.20 had DT's in hospital, avoiding etoh since, declines seeing counsellor Essential hypertension 01678147 I10 stable, cont meds as dir Asthma 786610672 J45.30 stable, cont meds/inh as dir Hyponatremia 54925743 E8 7.1 as per pt - will recheck Liver func tion tests outside reference range 680292760 R94.5 see above - will check cmp [id number] Amanuel Kinsey MD Main Office [address] [facility] [address] [place] [address] 11/02/2017 08:45:17 11/02/2017 10:02:41 Adult health examination 754871900 Z00.00 Essential hypertension 20810921 I10 Hyperlipidemia 20630236 E78.5 Moderate p ersistent asthma 223282379 J45.40 Low back pain 923900583 M54.5 S/P bilateral L3-4 discectomy (Jitendra) 2017 Alcohol dependence 71798 003 F10.21 Treated for alcohol withdrawal post operativel y (lumbar discectomy ) in 2017. [id number] BUD Mancera Main Office [address] [facility] [address] [place] [address] 05/17/2018 08:13:56 05/17/2018 09:41:30 Essential hypertension 43552222 I10 BP well controlled today, continue meds as directed. Anxiety 72924939 F41.9 Patient is on 200mg sertraline daily. he also is on a benzo at bedtime for back pain/ sleep. he notes he drinks half pint of vodka most days to help control his anxiety. He is inquiring about as needed med for anxiety. i explained that as needed med would likely be a benzo, I do not believe this a good option for him as it seems he is self medicating with alcohol and the combinatio n of the two is unsafe. he also cannot take it while driving or working and med is temporary so he would likely be taking it more than prescribed . I did offer to add wellbutrin to see fi this helps with his anxiety in combinatio n with SSRI. He declines at this time. he will call Allegra or Mel Blair for therapy CARL to start this. I reminded him about grounding techniques and breathing exercises. I also gave him the number to the crisis hotline to use as needed when feeling panic. Insomnia 599742868 G47.0 0 currently on diazepam and takign melatonin. has appt with ortho later to re-eval diazepam. [id number] Amanuel Kinsey MD [facility] [address] [place] [address] 04/20/2020 09:35:16 04/20/2020 10:44:34 Unexplained weight loss 834728413 R63.4 Hyperglycemia 86795579 R 73.9 Severe kera or depression, single episode, without psychotic features 76693230 F32.2 Hyperlipidemia 17204863 E78.5 Essential hypertension 08693023 I10 Alcohol dependence 16500 003 F10.21 Treated for alcohol withdrawal post operativel y (lumbar discectomy ) in 2017. [id number] Amanuel Kinsey MD [facility] [address] [place] [address] 05/01/2020 08:48:20 05/04/2020 09:16:24 Essential hypertension 02221390 I10 Off meds. Will follow home BP readings. Hyponatremia 32858823 E8 7.1 Acquired thrombocytopenia 87775425 D69.6 Severe kera or depression, single episode, without psychotic features 29229756 F32.2 Improved on sertraline Insomnia 050572153 G47.0 0 [id number] En Rosenbaum MD [facility] [address] [address] [address] [facility] [place] [address] 06/11/2020 08:15:47 06/11/2020 14:17:50 Severe major depression, single episode, without psychotic features 10612888 F32.2 Overall doing well. Has IOP starting by phone next week, has appts with therapist and med prescriber . He feels ok on sertraline 150mg and trazodone. only using hydroxyzin e at bedtime and will likely stop this. has not had alcohol since admission. Anxiety 29309776 F41.9 Pain in ri ght lower limb 959786086 M79.604 [id number] [facility] [address]40 [facility] 207 [place] [address] 08/07/2020 13:09:28 08/10/2020 15:45:08 Severe major depression, single episode, without psychotic features 93688688 F32.2 Improved on sertraline Knee pain 02281858 M25.5 61 M25.562 Screening for malignant neoplasm of prostate 941127967 Z12.5 Pain of hip region 61197 002 M25.552 M25.551 Degenerati on of lumbar intervertebral disc 26712343 M51.36 S/P bilateral L3-4 discectomy (Comey) 2017 [id number] Wade Pradhan MD Main Office [address] [place] [address] 09/11/2020 15:14:12 09/11/2020 15:47:14 Herpes zoster 3205288 B02.9 Suspected shingles given dermatomal distributi on-Advised Avoid contact with high risk people. -prescript ion sent as noted below [id number] Amanuel Kinsey MD [facility] [address] [place] [address] 01/15/2021 13:24:20 01/18/2021 15:50:05 Major depression single episode, in partial remission 73640848 F32.4 Improved on sertraline Abnormal l iver function 91534197 K76.89 Fatigue 95161184 R53.83 Screening for cardiovascular system disease 530899438 Z13.6 Hyperglycemia 69634853 R 73.9 Alcohol dependence 55984 003 F10.21 Treated for alcohol withdrawal post operativel y (lumbar discectomy ) in 2017. Reports drinking much less [id number] Wade Pradhan MD Main Office [address] [place], [place] [address] 09/21/2021 15:20:29 09/21/2021 16:42:10 Acquired thrombocytopenia 34580449 D69.6 Brian is followed with gastroente rology regarding this he tells me he has stopped drinking, at this time we will recheck his platelet count.Will f/u on next visit to see plan with GI. Adult heal th examination 456397985 Z00.00 Patient was counseled on healthy diet, exercise and nutrition due to Body mass index is 35.1 kg/m . Last PSADate: 08/12/2020R esult: 0.4Plan: I had a shared discussion with the patient and we talked about the risk and benefits of PSA screening per [place] PTF guidelines he opted to hold screening for now. Last Colonoscop y:Date: 07/16/21Res ult: 3 polypsPlan : per GI repeat 3 yrs. Vaccines:T dAP: 02/12/13Zos ter: script providedPC V13: not upuDAQH62: not dueInfluen za: 09/21/21Cov id: tells me he had 2 Pfizer vaccine. Routine labs today Immunizati on status reviewed. Will screen based on risk factors. Regular dental and ophtho care advised as well as seat belt and sunscreen use. Distracted driving discussed. Medication reconciled . Fatigue 84401432 R53.83 Hyperlipidemia 64638210 E78.5 Needs infl uenza immunization 577741650 Z23 Varicella vaccination 68 568469 Z23 Alcohol dependence 32933 003 F10.20 Actinic keratosis 584497 007 L57.0 Tremor 26418198 R25.1 Notes to tremor with action.Tel ls me he no longer drinks, last drink was 2 month ago.If his last drink was 2 month ago it would be unlikely this is related to etoh.Will get some labs, if wnl will consider MRI. I will follow up in 1 month to get additional hx.Will review to see if any of his medication s can cause this. Anxiety 40284339 F41.9 Much improved from previous ESSIE score on current therapy.Fo nilam psy. Obesity 967244335 E66.9 - Diet and exercise discussed- Patient made aware of risks of obesity- Encouraged to loose weight.- Avoid starchy and fatty food- Encouraged use of green vegetables and fruits Body mass index 30+ - obesity 882317862 E66.9 Z68.35 [id number] Wade Pradhan MD Main Office [address] [facility] 207 [facility] [place] [address] 10/27/2021 15:05:50 10/27/2021 16:37:36 Tremor 48093292 R25.1 Notes to tremor with action- consistent with essential tremor.Lab work up from before normal.No longer drinking- likely unrelated. No focal deficits or signs of Parkinson features- will hold off on MRI.Will do a trial of propanolol . Chronic as thmatic bronchitis 746708372 J44.9 no wheezing, using rescue inhaler only seldom. Allergic rhinitis 451096 04 J30.9 no runny nose or sneezing currently sx well controlled with Fluticason e. Counseling 144791426 Z71 .9 Pt reporting significan t depression and life stressors in the last year.Refer [facility] for counseling with Sheldon / PRICILA Najera. Please provide patient with contact info to schedule their appointmen t.#[phone] [place]: [email or web address] Fatigue 33952866 R53.83 May be related to worsening depression as associated w. anhedonia, lack of appetite. Denies any homicidal or suicidal ideation, open to thereapy, will refer to Shira.also screened for LAURA given weight and neck circumfere nce as well as hx of snoring w/ episodes of apnea. Would consider sleep study referral.R ecent TSH wnl and no anemia. [id number] Wade Pradhan MD Main Office [address] [place] [address] 10/03/2022 09:15:28 10/03/2022 10:00:59 Adult health examination 200714868 Z00.00 Patient was counseled on healthy diet, exercise and nutrition due to Body mass index is 32.1 kg/m . Last PSADate: 08/12/2020R esult: 0.4Plan: Wants to repeat understand s risk. Last Colonoscop y:Date: 07/16/21Res ult: 3 polypsPlan : per GI repeat 3 yrs. Vaccines:T dAP: 02/12/13Zos ter: script providedPC V20: not dueInfluen za: 10/03/22Co vid: 10/16/21, 03/25/21, 02/27/21, 02/06/21, bivalent advised Routine labs today Immunizati on status reviewed. Will screen based on risk factors. Regular dental and ophtho care advised as well as seat belt and sunscreen use. Distracted driving discussed. Medication reconciled . Acquired thrombocytopenia 60040201 D69.6 Fatigue 77154671 R53.83 Hyperlipidemia 99000339 E78.5 Varicella vaccination 68 337578 Z23 Alcohol dependence 54388 003 F10.20 Follows gastro Actinic keratosis 667046 007 L57.0 follows derm. Anxiety 75269075 F41.9 Notes symptoms is worsening wants to bee be seen by [facility].On waiting list for therapist. Denies homicidal or suicidal Ideation Obesity 116911899 E66.9 - Diet and exercise discussed- Patient made aware of risks of obesity- Encouraged to loose weight.- Avoid starchy and fatty food- Encouraged use of green vegetables and fruits Body mass index 30+ - obesity 667117502 E66.9 Z68.35 Needs infl uenza immunization 880433212 Z23 Major depr ession single episode, in partial remission 15787922 F32.4 Chronic as thmatic bronchitis 054010044 J44.9 no wheezing, using rescue inhaler only seldom. Obstructiv e sleep apnea of adult 4554854471 103 G47.33 06/29/22: had sleep study suggest laura.Sandeep e on back order. Essential hypertension 60255749 I10 bp soft, will half dose of ccb have him follow up in 1 week if still stop will stop. He has lost some weight which may contribute . Nocturia 611006938 R35.1 [id number] Wade Pradhan MD Main Office [address] [place], [place] [address] 02/08/2023 15:23:05 02/08/2023 16:03:00 Obsessive-compulsive disorder 225410211 F42.9 Chronic as thmatic bronchitis 082816319 J44.9 no wheezing, using rescue inhaler only seldom. Alcohol dependence 76139 003 F10.20 stopped 1 yr ago from june, I congradula jayson him.Also follows GI with regards to varices. Severe kera or depression, single episode, without psychotic features 17522241 F32.2 Anxiety 49727531 F41.9 I reviewed with them the recommenda tions from the behavioral health department at [facility] at this time he and I both agree that we will increase his sertraline to 200 mg and titrate 6 weeks later. He is on the waiting list to also meet with a therapist in [facility] homicidal or suicidal Ideation at present, but has had them in the past, no plans or attemp. Has hotlinenum jonah and resources. Given the complex nature of his symptoms and the recommenda tion that maybe mood stabilizer s might be needed I have given him a psychiatri st referral with a specific name of a provider and he was advised to reach to them, in the meantime I will try to follow the recommenda tions per [facility] behavioral health as best as I can.I also gave him resources such as 413 care and behavioral health urgent care. Acquired thrombocytopenia 63789446 D69.6 Most likely related to alcohol intake since he quit and had his recent blood count his platelet counts have normalized . Disregard citrated platelet as it was not collected in proper specimen. [id number] Wade Pradhan MD Main Office [address] [place] [address] 04/03/2023 15:19:50 04/04/2023 08:37:49 Anxiety 64591301 F41.9 On sertraline 200mg notes improvment He is on the waiting list to also meet with a therapist in [facility] homicidal or suicidal Ideation at present, but has had them in the past, with no plans or attempts. Has a hot linenumber and resources. Given the complex nature of his symptoms and the recommenda tion that maybe mood stabilizer s might be needed, I have given him a psychiatri st referral with a specific name of a provider and he was advised to reach to them, he lost the informatio n and I gave it to him again today, In the meantime I will try to follow the recommenda tions per [facility] behavioral health as best as I can.I also gave him resources such as 413 care and behavioral health urgent care.He wants to remain on present regimen with increase sertraline dose as he feels sx little better.Roberto Carlos [place] check sodium levels on sertraline . Severe kera or depression, single episode, without psychotic features 75851568 F32.2 Obsessive- compulsive disorder 634812011 F42.9 Alcohol dependence 58746 003 F10.20 stopped 1 yr ago from june, I congradula jayson him.Also follows GI with regards to varices. Chronic as thmatic bronchitis 332862277 J44.9 no wheezing, using rescue inhaler only seldom. Acquired thrombocytopenia 45617122 D69.6 Most likely related to alcohol intake since he quit and had his recent blood count his platelet counts have normalized . Disregard citrated platelet as it was not collected in proper specimen. [id number] Wade Pradhan MD Main Office [address] [facility] [address] [facility] [place] [address] 10/04/2023 12:50:56 10/04/2023 13:32:41 Acquired thrombocytopenia 67667738 D69.6 Adult heal th examination 888485311 Z00.00 Patient was counseled on healthy diet, exercise and nutrition due to Body mass index is 31.2 kg/m . Last PSADate: 08/12/2020R esult: 0.4Plan: Wants to repeat understand s risk. Last Colonoscop y:Date: 07/16/21Res ult: 3 polypsPlan : per GI repeat 3 yrs. Vaccines:T dAP: 04/29/23Zos ter rec: 04/29/23, reminded to get second [id number]: script given, has asthama.In fluenza: 10/04/23Co vid: encouraged update vaccine Routine labs today Immunizati on status reviewed. Will screen based on risk factors. Regular dental and ophtho care advised as well as seat belt and sunscreen use. Distracted driving discussed. Medication reconciled . Nocturia 609243472 R35.1 Fatigue 98136509 R53.83 Hyperlipidemia 15088708 E78.5 Actinic keratosis 804729 007 L57.0 follows derm. Body mass index 30+ - obesity 707342118 E66.9 Z68.35 Obesity 272823014 E66.9 - Diet and exercise discussed- Patient made aware of risks of obesity- Encouraged to loose weight.- Avoid starchy and fatty food- Encouraged use of green vegetables and fruits Obstructiv e sleep apnea of adult 1784190071 103 G47.33 Follows sleep med Essential hypertension 97732528 I10 bp soft, will half dose of ccb have him follow up in 1 week if still stop will stop. He has lost some weight which may contribute . Impaired f asting glycemia 813138702 R73.01 Needs infl uenza immunization 582013449 Z23 Administra tion of pneumococcal vaccine 96593910 Z23 Anxiety 00288775 F41.9 Followed by clemente Major depr ession in remission 40833299 F32.5 Followed by clemente [id number] Wade Pradhan MD Main Office [address] [facility] [address] [facility] [facility] [place] [address] 04/29/2024 15:34:09 04/29/2024 16:23:14 Essential hypertension 92963150 I10 Bp well controlled with current dose, will continue with amlodipine 2.5mg.Cont . lifestyle modificati ons. [id number] Wade Pradhan MD Main Office [address] [facility] [address] [facility] [place] [address] 10/18/2024 12:48:05 10/18/2024 13:34:17 Adult health examination 617957453 Z00.00 Patient was counseled on healthy diet, exercise and nutrition due to Body mass index is 31.2 kg/m . Last PSADate: 10/04/23Re sult: 0.4Plan: Wants to repeat understand s risk. Last Colonoscop y:Date: 07/16/21Res ult: 3 polypsPlan : referral placed. Vaccines:T dAP: 04/29/23Zos ter rec: 04/29/23, 10/19/23PC V20: 10/19/23In fluenza: 10/18/24Co vid: encouraged update vaccine Routine labs today Immunizati on status reviewed. Will screen based on risk factors. Regular dental and ophtho care advised as well as seat belt and sunscreen use. Distracted driving discussed. Medication reconciled . Nocturia 311567729 R35.1 Fatigue 81338430 R53.83 R73.01 Hyperlipidemia 14131060 E78.5 Actinic keratosis 696745 007 L57.0 follows derm. Body mass index 30+ - obesity 426639532 E66.9 Z68.35 Obesity 203418014 E66.9 - Diet and exercise discussed- Patient made aware of risks of obesity- Encouraged to loose weight.- Avoid starchy and fatty food- Encouraged use of green vegetables and fruits Obstructiv e sleep apnea of adult 4743768945 103 G47.33 Follows sleep med. toss turn too much had to stop using CPAP. Essential hypertension 40849524 I10 bp soft, will half dose of ccb have him follow up in 1 week if still stop will stop. He has lost some weight which may contribute . Anxiety 84582813 F41.9 Followed by clemente Major depr ession in remission 29117432 F32.5 Followed by clemente Needs infl uenza immunization 451571607 Z23 19 YEARS AND OLDER ONLY Screening for malignant neoplasm of colon 058510230 Z12.11 History of alcoholism 16 3924207 F10.21 Chronic as thmatic bronchitis 061696277 J44.9 no wheezing, using rescue inhaler only seldom.He had wheezing today, otherwise asymptomat ic, advised to use albuterol today. Moderate p ersistent asthma 472269068 J45.40 Contusion of rib 1221184 06 S20.20XA Had fall earlier this week from moving no neck or head trauma but injured rib.Not taking anything for pain. Advised tylenol for pain. LFT were good on last lab.Advise d otc lidocaine patch.If fx noted will consider opiod.Francine ntive spirometry sent if fx noted. Acquired thrombocytopenia 11308412 D69.6 lab script printed for patient for citrate plateletFo [place] will check tick profile.No t clear why he is taking ASA denies hx of CVA or CAD, advised to hold.Avoid NSAID due to low platelet. [id number] Wade Pradhan MD Main Office [address] [facility] [address] [place] [address] 04/16/2025 09:17:38 04/16/2025 09:46:55 Essential hypertension [id number] I10 bp acceptable . cont current regimen. Encouraged to incorporat e physical activity. [id number] Wade Pradhan MD Main Office [address] [facility] [address] [place] [address] 10/20/2025 08:55:46 10/20/2025 11:15:18 Adult health examination [id number] Z00.00 Patient was counseled on healthy diet, [...] Distracted driving discussed. Medication reconciled . Nocturia 442273643 R35.1 Hyperlipidemia 76776084 E78.5 Actinic keratosis 999806 007 L57.0 follows derm. Body mass index 30+ - obesity 918238196 E66.9 Z68.35 Obesity 700858748 E66.9 - Diet and exercise discussed- Patient made aware of risks of obesity- Encouraged to loose weight.- Avoid starchy and fatty food- Encouraged use of green vegetables and fruits Obstructiv e sleep apnea of adult [id number] 103 G47.33 Follows sleep med. toss turn too much had to stop using CPAP. Essential hypertension 06929232 I10 bp soft, will half dose of ccb have him follow up in 1 week if still stop will stop. He has lost some weight which may contribute . Anxiety 26219827 F41.9 Followed by psych Major depr ession in remission 00531656 F32.5 Followed by psych Needs infl uenza immunization [id number] Z23 19 YEARS AND OLDER ONLY Fatigue 04517422 R53.83 R73.01 History of alcoholism 16 6226874 F10.21 Chronic as thmatic bronchitis 287699963 J44.9 Wheezing today, saw diana this morning who advised him to use his albuterol today.Foll ow up if sx don't improve. Moderate p ersistent asthma 289032041 J45.40 Acquired thrombocytopenia 21099125 D69.6 Could be due to hx of etoh use, will continue to monitor levels. Pain of knee region 1003 311444 M25.561 M25.562 G89.29 [id number] hx of etoh use and low platelet and high NSAID use will hold PO NSAID.Advi sed topical diclofenac , will get xray refer to ortho. Health Concerns Section Related Observation LastModified by Organization Detai ls LastModified Time None Recorded Concern Status LastModified by Organization Details LastModified Time None Recorded Advance Directives Directive N: still thinking about it Payers Insurance Date Sequence Insurance Name Policy Number Policy Maddox Covered Member ID Maddox Member ID Guarantor Name 10/20/2025 1 [employer] [id number] Brian Barajas [id number] N/A N/A 10/20/2025 1 [facility] [id number] Brian Barajas [id number] N/A N/A 10/20/2025 1 [facility] IN[facility]MNITY PLAN (INDEMNITY) [id number] Brian Barajas [id number] N/A N/A 10/20/2025 1 [facility] ([facility] [id number] Brian Barajas [id number] N/A N/A Notes Date Note Type Note Provider Name and Address Organization Details Recorded Time 10/04/2023 text/html Asthma F/UReport ed by PatientHPIFor severity, patient reportsable to sleep during episodeanddoes not interfere with daily activities. For context, patient reportsimproving. For associated symptoms, patient reportsno fever,no fatigue,no irritability,no cough,normal appetite,no changes in productivity, andno shortness of breath. Anxiety/DepressionRepo rted by PatientHPIFor quality, patient reportssymptoms improved. For severity, patient reportsdenies suicidal ideations(has had thought of self harm but no plan. has never attempted. none at present).Continues to abstain from etoh. Generic HPI TemplateReported by PatientROS as noted in the HPI Here for wellness visit. Reviewed chronic medications and medical problems. Discussed screening guidelines as well as goals for fitness and weight management.Following up with psych, Dr. Morales regarding mental health. Wade Pradhan MD [address], [address], [facility] 10/04/2023 13:30:30 04/29/2024 text/html Hypertension F/UReported by PatientHPIFor associated symptoms, patient reportsno dizziness,no lightheadedness,no chest pain,no shortness of breath,no palpitations,no edema, andno calf pain with exertion. For lifestyle, patient reportsregular exercise,limiting/avoi ding salt,exercises 3 times/week, andexercises for 30 minutes/day. For medications, patient reportstaking medications as directed,no side effects from medication, andchecks blood pressure at home, range: (under 130/90). Wade Pradhan MD [address] [address], [place], [address], [facility] 04/29/2024 16:21:03 10/18/2024 text/html Generic HPI TemplateReported by PatientROS as noted in the HPI Here for wellness visit. Reviewed chronic medications and medical problems. Discussed screening guidelines as well as goals for fitness and weight management.Following up with psych, Dr. Morales regarding mental health.Had recent fall while moving no head or neck trauma. No LOC. Wade Pradhan MD [address] [address], [place], [address], [facility] 10/18/2024 13:25:19 04/16/2025 text/html Hypertension F/UReported by PatientHPIFor lifestyle, patient reportsnot exercising regularlybut reportslimiting/avoidi ng salt. For associated symptoms, patient reportsno dizziness,no lightheadedness,no chest pain,no shortness of breath,no palpitations,no edema, andno calf pain with exertion. For medications, patient reportstaking medications as directedandno side effects from medication. Wade Pradhan MD [address] [address], [place], [address], [facility] 04/16/2025 09:47:50 10/20/2025 text/html Musculoskeletal PainReported by PatientHPIFor quality, [...] concern for knees burn and aches. Wade Pradhan MD [address] [address], [place], [address], [facility] 10/20/2025 09:56:01
== END 2025-11-06 14:39 | disposition home or self-care (01) ==
LOC: HO.HPHYS 13:27
PROVIDERS: PCP Family Medicine; Visit Provider Physician Assistant
DX: M17.0 Bilateral primary osteoarthritis of knee (principal)
CPT/HCPCS: 99204